=== PATIENT | male | born 1970 | race African-American/Black ===

== ENCOUNTER 2017-07-12 19:19 | Emergency (ER) | payer OTHER, SELFPAY ==
[2017-07-12 19:22] VITALS: BP 148/85; PULSE 88; RESP 16; TEMP 36.8; O2SAT 97; BMI 32.2
--- NOTE | 2017-07-12 19:30 | RAD_ITS ---
STUDY: X-RAY - RIGHT SHOULDER REASON FOR EXAM: Male, 47 years old. Pain TECHNIQUE: 4 view(s) of the shoulder. COMPARISON: None. FINDINGS: Normal glenohumeral articulation. Normal acromioclavicular joint. Normal acromion. Normal humeral head and visualized proximal humerus. The soft tissue structures are unremarkable. Normal visualized pulmonary apex. RAD/Shoulder min 2 Views IMPRESSION: Normal x-ray examination of the shoulder. Electronically Signed: Tomasz Mtz DO at 19:43 EST Tel [phone], Service support ,
--- NOTE | 2017-07-12 20:33 | ED.DCSUM_ITS ---
- ER Visit Summary Date of Service: 07/12/17 Chief Complaint: Right shoulder pain History of Present Illness: The patient is a [address] Sifuentes. He is right- hand dominant. He reports that he has right shoulder pain began approximately 1 week ago. Is a sharp constant pain. Is 10 out of 10 with movement. Zeta 10 and relieved by elevating his head over his arm. He denies any trauma. No fall , MVA, or change in activity. He denies any paresthesias or weakness distally. Reports that he has had this previously with neuropathy. Review of systems: General: No fever, chills, cold sweats. Cardiovascular: No chest pain, palpitations. Respiratory: No cough, shortness of breath, dyspnea on exertion. Gastrointestinal: No abdominal pain, nausea, vomiting, diarrhea, melena, or hematochezia. Genitourinary: No dysuria, frequency, hematuria. Skin: No rash. Neuro: No headache, numbness, weakness. Physical Examination: Vitals: Stable. Afebrile. General: Well-nourished and well-developed. Head: Normocephalic atraumatic. Neck: Supple, no lymphadenopathy. No JVD. Nontender. Cardiovascular: Regular rate and rhythm. No murmurs. Respiratory: No respiratory distress. Clear to auscultation bilaterally. Abdominal: Soft, nontender, nondistended, normal bowel sounds. No guarding, rebound, or peritoneal signs. Back: Nontender. Extremities: Mild tenderness palpation over the right deltoid. No overlying erythema or warmth to suggest a septic joint. No edema. 2+ radial pulse bilaterally. Normal sensation light touch in C5-T1 distribution. Skin: Normal color, no rash. Neurologic: Alert and oriented ?3. Cranial nerves II through XII are intact. Normal strength and sensation. Psych: Normal affect. Test Results: Right shoulder x-ray is normal. Emergency Department Course and Treatment: An OAR[facility] report was obtained which was negative. He was treated with [place] and naproxen. Treatment Plan: She will be discharged with [place] and naproxen. Instructed to follow-up Dr. Sifuentes in 1 week if not improving. Disposition: To home in improved and stable condition. Impression: 1. Right shoulder pain, acute. This note was generated with Number [employer]ation software. It may contain incorrect words, spelling, and punctuation that were not noted in review of the chart prior to signing ED Disposition - Plan for ED Patient: Disposition: Home or Assisted Living Chief Complaint: Upper Extremity Injury Instructions: ED Shoulder Pain [facility] Prescriptions: Hydrocodone Bitart/Apap 5-325 [[place] 5/325] 1 - 2 tablet PO Q4H PRN PRN 3 Days # 12 tablet PRN Reason: Pain Naproxen [Naprosyn] 500 mg PO BID #20 tablet Referrals: Biju Sifuentes MD [Primary Care Provider] - 1 Week if not improving
[2017-07-12 20:42] VITALS: BP 135/80; PULSE 85; RESP 14; O2SAT 100
[2017-07-12] MEDS: Naproxen 250 MG Tablet 500 MG PO (20:45)
[2017-07-12] MEDS: HYDROcodone Bitartrate/Apap 5/325 Tablet PO (20:45)
== END 2017-07-12 20:46 | disposition home or self-care (01) ==
LOC: ED 20:39
PROVIDERS: Emergency Provider Emergency Medicine; Family Provider Family Medicine; PCP Family Medicine
DX: M25.511 Pain in right shoulder (principal); G62.9 Polyneuropathy, unspecified; Z90.49 Acquired absence of other specified parts of digestive tract
CPT/HCPCS: 73030; 99283

== ENCOUNTER 2018-08-18 20:38 | Emergency (ER) | payer OTHER, SELFPAY ==
[2018-08-18 20:40] VITALS: BP 131/90; PULSE 95; RESP 18; TEMP 36.7; O2SAT 95; BMI 31.6
--- NOTE | 2018-08-18 20:50 | ED.DCSUM_ITS ---
- ER Visit Summary Date of Service: 08/18/18 Chief Complaint: Sinus infection, right ear pain History of Present Illness: The patient is a 48 M who states he has a sinus infection. He has a lot of sinus congestion and drainage. He is felt dizzy today. He also has right ear pain. He denies a cough. He does not have a fever currently. He took no medications for this at home. Physical Examination: Vital signs reviewed. HEENT exam reveals right TM erythema. He has swollen turbinates with sinus congestion. Throat is nonerythematous. Neck is supple without lymphadenopathy. Heart is regular rate and rhythm. Lungs clear. Abdomen soft nontender. Neurologic exam normal Test Results: None performed Emergency Department Course and Treatment: I will treat the patient to the right otitis media with Augmentin. Also give him Mucinex D. He will follow-up with his PCP Treatment Plan: [] Disposition: Discharge Impression: Right otitis media, sinusitis This note was generated with [employer] dictation software. It may contain incorrect words, spelling, and punctuation that were not noted in review of the chart prior to signing ED Disposition - Plan for ED Patient: Referrals: Biju Sifuentes MD [Primary Care Provider] -
--- NOTE | 2018-08-18 20:50 | ED.DEP ---
ED Disposition - Plan for ED Patient: Disposition: Home or Assisted Living Instructions: ED Otitis Media Acute Adult Prescriptions: Amox/Clavulanate Tablet [Augmentin Tablet] 875 mg PO Q12H #14 tab Guaifenesin/Pseudoephedrne HCl [Mucinex D ER 600-60 mg Tablet] 1 ea PO BID #14 tab.er.12h Referrals: Biju Sifuentes MD [Primary Care Provider] -
[2018-08-18] MEDS: Amox/Clavulanate 875 MG Tablet PO (20:51)
== END 2018-08-18 21:03 | disposition home or self-care (01) ==
LOC: ED 21:02
PROVIDERS: Emergency Provider Emergency Medicine; Family Provider Family Medicine; PCP Family Medicine
DX: H66.91 Otitis media, unspecified, right ear (principal); J32.9 Chronic sinusitis, unspecified; E11.9 Type 2 diabetes mellitus without complications
CPT/HCPCS: 99283

== ENCOUNTER 2018-08-28 22:22 | Emergency (ER) | payer OTHER, SELFPAY ==
[2018-08-28 22:23] VITALS: BP 128/90; PULSE 90; RESP 14; TEMP 36.4; O2SAT 95; BMI 30.9
--- NOTE | 2018-08-28 22:41 | ED.VIS.GEN ---
History of Present Illness Chief Complaint: Bite Informant: Patient Onset: Today Narrative: Patient stated he was accidentally bit by his own dog just prior to arrival this evening when he was walking him outside. He startled his dog and he bit his left hand. He is unsure about his last tetanus. Came in for further evaluation and closure. Current severity is mild. He has small puncture wounds to the medial aspect of his left hand. Current severity is mild. Past Medical History - Allergies and Home Meds Allergies/Adverse Reactions: Allergies No Known Allergies Allergy (Verified 08/28/18 22:25) Primary Care Physician: Biju Sifuentes MD [Primary Care Provider] - Prior records reviewed: Yes Past Medical History: - - Reviewed Surgical History: noncontributory Lives: Spouse/ Significant Other Smoking Status: Never smoker Alcohol: None Drugs: None Review of Systems General: Denies: Chills, Fever, Sweats Eyes: Denies: Visual changes - bilaterally, Diplopia ENT: Denies: Rhinorrhea, Sore throat Cardiovascular: Denies: Chest pain, Palpitations Respiratory: Denies: Dyspnea, Cough, Dyspnea on exertion Gastrointestinal: Denies: Abdominal pain, Nausea, Vomiting, Diarrhea, Melena, Hematochezia Genitourinary: Denies: Dysuria, Hematuria, Frequency Musculoskeletal: Denies: Back pain, Extremity Pain Skin: Reports: Wounds - See HPI. Denies: Rash Neurological: Denies: Headache, Weakness, Numbness Physical Exam Vital Signs/Narrative: Vital Signs Temp Pulse Resp BP Pulse Ox 08/28/18 22:23 97.6 F L 90 14 128/90 H 95 General: Well nourished, Well developed, No Acute Distress Head: Normocephalic, Atraumatic Eyes: Perrl, EOMI ENT: Moist mucous membranes, No rhinorrhea Neck: Supple, Nontender Cardiovascular: Regular rate, Regular rhythm, No murmurs Respiratory: No distress, CTA bilaterally, Chest nontender Abdomen: Soft, Nontender, Nondistended, Normal bowel sounds Back: Nontender, Normal Inspection Extremities: Nontender, No edema Skin: Normal color, No rash, Trauma - Patient has 2 0.5 cm lacerations to the palm of his left hand. There is superficial. He has 2 small adjacent superficial punctures Neurological: Alert, Oriented x3, Cranial nerves II-XII grossly intact, Normal Strength, Normal Sensation Psychological: Normal affect, Normal Mood Diagnostic/Tx/Re-eval - Medical Decision Making Patient consented to wound closure. His wounds were washed with hexedine. They were explored and no foreign body was seen. There were washed with saline 500 cc. Closed with 1 suture in top hand wound. Closed with 2 sutures in the bottom hand wound bacitracin was applied as well as a dressing. He will be given a prescription for Augmentin. Given Augmentin and tetanus update here. ED Disposition - Plan for ED Patient: Disposition: Home or Assisted Living Diagnosis: Hand laceration, Dog bite Instructions: ED Bite Dog Prescriptions: Amox/Clavulanate Tablet [Augmentin Tablet] 875 mg PO Q12H #14 tab Referrals: Biju Sifuentes MD [Primary Care Provider] -
[2018-08-28] MEDS: Diphth,Pertuss(Acell),Tet Vac 0.5 ML Vial IM (22:49)
[2018-08-28] MEDS: Amox/Clavulanate 875 MG Tablet PO (23:42)
[2018-08-28 23:47] VITALS: RESP 18
== END 2018-08-28 23:50 | disposition home or self-care (01) ==
PROVIDERS: Emergency Provider Emergency Medicine; Family Provider Family Medicine; PCP Family Medicine
DX: S61.412A Laceration without foreign body of left hand, initial encounter (principal); W54.0XXA Bitten by dog, initial encounter; Y93.K1 Activity, walking an animal; Y92.9 Unspecified place or not applicable
CPT/HCPCS: 12001; 90471; 90715; 99285

== ENCOUNTER 2018-08-31 12:10 | Inpatient (IN) | payer OTHER, SELFPAY ==
[2018-08-31 12:12] VITALS: BP 131/99; PULSE 104; RESP 19; TEMP 36.2; O2SAT 97; BMI 30.2
--- NOTE | 2018-08-31 12:34 | ED.VISSUMM ---
- ER Visit Summary Date of Service: 08/31/18 Chief Complaint: Infected left hand dog bite History of Present Illness: The patient is a 48 M history of [id number] diabetes. Patient was bit by his own dog on Wednesday. Was seen in the emergency department. Has a significant palm laceration which was washed out and repaired. They also started him on Augmentin. In the last day or so he has had increasing pain, redness and puslike discharge from the wound. Saw his primary care physician today who sent him into the ER for evaluation. He denies any fever. Physical Examination: Well-appearing middle-age male. Vital signs are stable. He is afebrile. No distress. HEENT exam unremarkable. Neck nontender. Lungs clear to auscultation bilaterally. Heart regular rhythm no murmur. Rate about 100. Abdomen soft nontender normal bowel sounds no peritoneal signs. Remedies moves all 4. Neurovascular intact. Left hand palm laceration repair with several sutures in place. There is a small amount of pus like discharge. The hand is swollen. Red and tender. Consistent with a localized hand palm infection. Distally he has normal cap refill to his fingers and thumb. Normal touch sensation. He is able to open and close his hand. No signs of compartment syndrome. The forearm is nontender. Nonswollen. No lymphangitic streaking. There is no axillary lymphadenopathy. The wrist, elbow and shoulder are nontender with normal range of motion. Test Results: CBC shows 7. Hemoglobin 17. Electrolytes unremarkable normal gap and creatinine. Glucose 165. Emergency Department Course and Treatment: Patient has an infected dog bite of the palm. I will remove the sutures. Irrigate the wound. Apply iodine. Will be started on IV Zosyn. Wound cultures will be obtained. I have also already discussed the patient's care with Dr. Lugo who will evaluate him and he may need to go to the OR in the next 24 hours to have this washed out. I will speak to the hospitalist about admission. He will receive morphine for pain. I removed the sutures from the left palm puncture wound dog bite. Pus expressed from each. They were locally anesthetized with lidocaine. I did both MRSA and regular wound cultures. Expressed as much pus as I could. Cleaned both areas thoroughly with iodine and washed out the wounds. Patient tolerated procedure well. Treatment Plan: IV antibiotics. Hospitalist admit. Orthopedic consult for possible open debridement. Disposition: Admission Impression: Acute left hand infected dog bite post laceration repair This note was generated with [employer] dictation software. It may contain incorrect words, spelling, and punctuation that were not noted in review of the chart prior to signing ED Disposition - Plan for ED Patient:
[2018-08-31] MEDS: morphine 8 MG/ML Syringe 6 MG IV (12:51)
[2018-08-31] MEDS: Ondansetron 4 MG/2 ML Vial IV (12:51)
[2018-08-31 13:01] LABS: Absolute Lymphocyte Count 2.24 X10^3/ul (0.83-4.51); Absolute Neutrophil Count 3.9 X10^3/uL (2.0-7.7); Basophil# 0.02 X10^3/uL; Basophil% 0.3 % (0-1); Eosinophil# 0.12 X10^3/uL; Eosinophils% 1.7 % (0-5); Hematocrit 47.9 % (40-54); Lymphocyte # 2.24 X10^3/ul (4.0); Lymphocyte % 32.1 % (19-41); Mean Corp Hgb Conc 35.5 g/gl (32-36); Mean Corpuscular Volume 87.4 fL (80-94); Mean Platelet Vol. 10.2 fl (6.2-12.0); Monocyte# 0.66 X10^3/uL; Monocyte% 9.5 % (0-10); Neutrophil # 3.94 X10^3/uL (2.7-7.7); Neutrophil % 56.4 % (47-70); Platelet Count 181 K/mm3 (150-450); RBC Distribution Width CV 14.1 % (11.6-14.6); RBC Distribution Width SD 45.5 fl (35.1-43.9); Red Blood Count 5.48 M/mm3 (4.6-6.2)
[2018-08-31 13:05] LABS: POSITIVE COUNT NO; POSITIVE DIFFERENTIAL NO; POSITIVE MORPHOLOGY NO
[2018-08-31 13:10] LABS: Anion Gap 5 (5-15); BUN 9 mg/dL (7-18); BUN/Creat Ratio 8.6 RATIO (10-20); Chloride 103 mmol/L (98-107); Creatinine, Serum 1.05 mg/dL (0.70-1.30); EST Glomerular Filtration Rate 80 mL/min (>60); Est Glom Filt Rate - Afr Amer 97 mL/min (>60); Estimated Creatinine Clearance 95.46 ml/min; Glucose 165 mg/dL (74-106); Potassium 3.8 mmol/L (3.5-5.1); Sodium Level 136 mmol/L (136-145)
--- NOTE | 2018-08-31 13:19 | PCM.HP.STD ---
Problem List (1) Infected animal bite of hand Status: Acute Qualifiers: Laterality: left (2) Diabetes mellitus, type II Status: Chronic Qualifiers: Diabetes mellitus stroboscope operator insulin use: without stroboscope operator use Diabetes mellitus complication status: with unspecified complications Qualified Code(s): E11.8 - Type 2 diabetes mellitus with unspecified complications (3) Obesity Status: Chronic Qualifiers: Obesity type: due to excess calories Obesity classification: adult class 1 (BMI 30 - 34.9) (4) Chronic neck pain Status: Chronic (5) HLD (hyperlipidemia) Status: Chronic Qualifiers: Hyperlipidemia type: pure hypercholesterolemia Qualified Code(s): E78.00 - Pure hypercholesterolemia, unspecified; E78.0 - Pure hypercholesterolemia (6) Anxiety and depression Status: Chronic History of Present Illness Date of Admission: 08/31/18 Chief Complaint: L hand pain s/p canine bite The patient is a 48 y/o M w/ PMHx: Obesity, Diabetes mellitus type II, HLD, Anxiety and Depression, Chronic Neck Pain who presents to the [facility] ED on 08/31/18 with history of being bitten by his dog after accidentally surprising him on his left palm, presenting to the ED that evening with washout, Augmentin initiation with onset redness, swelling, purulence coming from sutures over the last 24 hours with no associated fevers or chills. He is having some difficulty opening his hand and closing it secondary to the swelling. He did take off his wedding ring. Work-up in the ED included T 97.1, heart rate 104, BP 131/99, respiratory rate 19, 97% on room air, CBC with WBC 7, hemoglobin 17, platelet 181 without shift, BMP remarkable for glucose 165, plan to ED I&D of the region with wound culture and wound MRSA PCR to be obtained. In the ED patient administered Zosyn, morphine, Zofran. Past Medical History Past Medical History (Chronic Problems): Chronic Problems Diabetes mellitus, type II (Chronic) Obesity (Chronic) Chronic neck pain (Chronic) HLD (hyperlipidemia) (Chronic) Anxiety and depression (Chronic) Allergies No Known Allergies Allergy (Verified 08/31/18 12:11) Home Medications: Ambulatory Orders Medication Instructions Recorded Duloxetine Hcl [Cymbalta] 60 mg PO DAILY 10/30/15 Metformin(XR) [Glucophage Xr] 500 mg PO DAILY 08/18/18 Tizanidine HCl 4 mg PO BID 08/28/18 Amox/Clavulanate Tablet [Augmentin 875 mg PO Q12H 08/31/18 Tablet] Atorvastatin Calcium [Lipitor] 20 mg PO QHS 08/31/18 Ranitidine HCl 300 mg PO BID 08/31/18 Surgical History: - - Status post congenital cervical spine deformity intervention following , cholecystectomy, inguinal hernia repair. Psychiatric History: Anxiety, Depression Lives: Spouse/ Significant Other Smoking Status: Never smoker Tobacco Use: Non-smoker Alcohol: None Drugs: None - *Family History Maternal History Items: - - Patient with no market maternal family history including no heart disease, diabetes, cancer. Paternal History Items: - - Patient with a paternal family history of diabetes. Review of Systems Constitutional: Reports: Malaise, Weakness, Fatigue. Denies: Chills, Fever, Weight Change HEENT: Denies: Head Aches, Sinus Congestion, Sinus Drainage Cardiovascular: Denies: Chest Pain, Palpitations Respiratory: Denies: Cough, Shortness of breath at rest, Sputum production Gastrointestinal: Denies: Abdominal Pain, Nausea, Vomiting Genitourinary: Denies: Dysuria Musculoskeletal: Reports: Hand Pain, Joint Pain, Neck Pain. Denies: Joint Tenderness Skin: Reports: Skin Changes, Wounds. Denies: Rash Neurological: Denies: Numbness, Tingling, Focal weakness Psychiatric: Reports: Anxiety, Depression. Denies: Homicidal Ideations, Suicidal Ideations Hematologic/ Lymphatic: Denies: Easy Bruising, Easy Bleeding VTE Information - Inpt Only VTE Present on Admission: No VTE Mechan Device Prophylaxis: SCD's VTE Pharm Prophylaxis ordered?: Yes Patient Problems: Active and Suspected Problems Infected animal bite of hand (Acute) Subjective: Seated upright in the ED bed, no acute distress, does have discomfort with evaluation of left hand. Objective: Physical Examination: General: awake, alert, oriented x 3 and cooperative, seated upright in the ED bed in no apparent distress but pain elicited with evaluation. Skin: normal color, turgor, no icterus, cyanosis except as noted canine bites to the left hand with [address] regions of sut[address] in place with purulent material able to be expressed with pressure, very edematous, tender to palpation, warm to touch, no marketed cellulitic appearance or streaking. HEENT: AT/NC, EOMI, PERRLA, mildly dry MM, no carotid bruits or JVD noted. Lungs: CTA bilaterally, moderate effort, mild decrease BL bases, no rales, ronchi or wheezing. Heart: Mildly tachycardiac with regular rhythm; no gallop, rub audible. Abdomen: soft, obese, NTTP, ND, normal BS, no HSM. Extremities: no cyanosis, clubbing, difficulty with opening and closing hand secondary to severity of edema, see skin. Neurological: patient awake, alert, oriented x 3; cognitive function intact; pupils equally reactive to light and accomodation; cranial nerves II-XII grossly normal, moving all 4 extremities although limited LUE hand usage given acute presentation, no focal deficits, strength accordingly mildly to moderately globally decreased left upper extremity otherwise intact other extremities. Psychiatric: affect appears normal, no acute evidence of depressive or anxiety feelings. - Physical Exam Vital Signs Temp Pulse Resp BP Pulse Ox 97.1 F L 104 H 19 H 131/99 H 97 08/31/18 12:12 08/31/18 12:12 08/31/18 12:12 08/31/18 12:12 08/31/18 12:12 Weight: 223 lb Body Mass Index (BMI) 30.2 Laboratory Tests Past 24 Hrs 08/31/18 08/31/18 08/31/18 12:40 12:41 12:41 WBC 7.0 RBC 5.48 Hgb 17.0 H Hct 47.9 MCV 87.4 MCH 31.0 MCHC 35.5 RDW 14.1 RDW Differential 45.5 H Plt Count 181 MPV 10.2 Immature Gran % (Auto) 0.000 Neut % (Auto) 56.4 Lymph % (Auto) 32.1 [place] % (Auto) 9.5 Eos % (Auto) 1.7 Baso % (Auto) 0.3 Absolute Neuts (auto) 3.9 Absolute Lymphs (auto) 2.24 Total Counted Not Reportable Sodium 136 Potassium 3.8 Chloride 103 Carbon Dioxide 28.0 Anion Gap 5 BUN 9 Creatinine 1.05 Estim Creat Clear Calc 95.46 Est GFR (MDRD) Af Amer 97 Est GFR (MDRD) Non-Af 80 BUN/Creatinine Ratio 8.6 L Glucose 165 H Calcium 9.0 S.aureus Protein A PCR Pending MRSA (PCR) Pending Assessment/Plan All Active Problems Infected animal bite of hand (Acute) The patient is a 48 y/o M w/ PMHx: Obesity, Diabetes mellitus type II, HLD, Anxiety and Depression, Chronic Neck Pain who presents to the [facility] ED on 08/31/18 with history of being bitten by his dog after accidentally surprising him on his left palm, presenting to the ED that evening with washout, Augmentin initiation with onset redness, swelling, purulence coming from sutures over the last 24 hours with no associated fevers or chills. (1) LUE (Dominant hand) Hand, Palm Infected Canine Bites, Cellulitis: Work-up in the ED included T 97.1, heart rate 104, BP 131/99, respiratory rate 19, 97% on room air, CBC with WBC 7, hemoglobin 17, platelet 181 without shift, BMP remarkable for glucose 165, plan to ED I&D of the region with wound culture and wound MRSA PCR to be obtained. In the ED patient administered Zosyn, morphine, Zofran. Will admit to [facility], maintain on IV vanc and zosyn pending Wound Cx, Wound MRSA PCR w/ de-escalation pending these results, plan repeat CBC in AM, continue affected extremity elevation above heart when seated and in bed, monitor erythema outline with VS checks. Orthopedic surgery, Dr. Lugo consulted, NPO after midnight for possible OR needs. (2) Diabetes mellitus type II: Hold oral home regimen, ADA diet, accu checks w/ ISS, hemoglobin A1c pending, nutrition consulted for education and teaching. (3) Elevated BP without HTN Dx: Elevated DBP upon ED presentation, given acute pain, will continue to monitor and if remains elevated consider initiation of regimen. (4) Hyperlipidemia: Continue home statin regimen. (5) Anxiety and Depression: Continue home Cymbalta regimen. 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 (7) Obesity: Weight loss and lifestyle changes encouraged, nutrition consulted. (8) GERD: Continue home ranitidine regimen. (9) DVT Prophylaxis: SCDs, lovenox with hold 09/01/18 AM for possible OR. Code Visit Inpatient E&M: 73657 Init Hosp L3
--- NOTE | 2018-08-31 13:34 | NURSING ---
313 LT HAND DOG BITE, INFECTED WHITE
--- NOTE | 2018-08-31 14:15 | CASEMGMT ---
RN CM Assessment Introduced role of RN CM to patient and family at bedside.? Patient is alert, oriented and able?to participate in RN CM Assessment. ?Care providers, pharmacy, and demographics verified. Presentation: Seen In ER 08/28/18 for Dog Bite/laceration repair-his own Dog. h/o Diabetes, Non Insulin Dependent. Seen PCP today and sent him to ER. +Swelling, redness, small amount Pus like Discharge. Admit Dx: Left hand dog bite, Infected Re-Admit: No Barriers/Issues: None PCP: Biju Sifuentes Specialists: None [facility]erred [facility]acy[facility] Insurance: CAPPTURE Rx Benefit: Yes? LNOK: Teresa Sales LW/HPOA: Yes- believes so, HPOA- Teresa Sales Living Arrangements:? Lives with in a SS Home, 3 steps to enter ADL?s: Independent with ambulation and ADL's Transportation: Patient drives, or parents will drive upon DC DME: CPAP, Glucometer HHC: None SNF: None Goal: Home DC PLAN: Home with possible IV ABX. PATO Dang
[2018-08-31 14:29] VITALS: BMI 30.2
[2018-08-31 15:02] LABS: M R Staph aureus DNA By PCR Negative (Negative); Probe Check PASS; Specimen Processing Control PASS; Staph aureus DNA By PCR POSITIVE (Negative)
[2018-08-31] MEDS: morphine 10 MG/ML Syringe 6 MG IV (15:08)
[2018-08-31 15:10] VITALS: BP 143/84; PULSE 97; RESP 16
[2018-08-31 15:44] VITALS: BMI 30.8
[2018-08-31 15:49] VITALS: BP 153/93; PULSE 85; RESP 16; TEMP 36.2; O2SAT 96
[2018-08-31 16:14] LABS: Magnesium 2.1 mg/dL (1.6-2.6)
[2018-08-31] MEDS: 0.9% Normal Saline 1,000 ML 100 ML IV (16:18)
[2018-08-31] MEDS: HYDROcodone Bitartrate/Apap 5/325 Tablet PO ×2 (16:20→22:34)
[2018-08-31] MEDS: Enoxaparin 40 MG/0.4 ML Syringe SC (16:20)
[2018-08-31] MEDS: Insulin Lispro 100 UNIT/ML INSULN.PEN SC ×2 (16:27→22:27)
[2018-08-31 17:00] LABS: Bedside Glucose 231 mg/dL (70-110)
--- NOTE | 2018-08-31 18:49 | PCM.RX.CS ---
Consult Pharmacy has been consulted to manage selected antiobiotic: Vancomycin Type of Consult: New start Suspected Infection: Skin/Soft tissue Prior Doses of Antibiotics Received/Current Regimen: NONE Labs: Sodium 136 mmol/L (136-145) 08/31/18 12:41 Potassium 3.8 mmol/L (3.5-5.1) 08/31/18 12:41 Chloride 103 mmol/L (98-107) 08/31/18 12:41 Carbon Dioxide 28.0 mmol/L (21.0-32.0) 08/31/18 12:41 Anion Gap 5 (5-15) 08/31/18 12:41 BUN 9 mg/dL (7-18) 08/31/18 12:41 Creatinine 1.05 mg/dL (0.70-1.30) 08/31/18 12:41 Est GFR (MDRD) Af Amer 97 mL/min (>60) 08/31/18 12:41 Est GFR (MDRD) Non-Af 80 mL/min (>60) 08/31/18 12:41 BUN/Creatinine Ratio 8.6 RATIO (10-20) L 08/31/18 12:41 Glucose 165 mg/dL (74-106) H 08/31/18 12:41 Microbiology: Microbiology 08/31/18 12:40 Bite, Dog Gram Stain - Final Weight used for dosin kg Estimated Creatinine Clearance: 95ML/MIN Goal Trough: 10-15 mcg/mL Pharmacy Plan for Drug Dosing: PLAN/RECOMMENDATIONS 1. Vancomycin initial dose 1500mg IV x1 given 08/31 @1749 2. Scheduled vancomycin 1500mg IV Q12hr to start 09/01 @0600 3. Trough scheduled 09/02/18 @0530, prior to 4th total dose 4. Pharmacy Service will continue to monitor and adjust dosing as required.
[2018-08-31 19:05] VITALS: O2SAT 94
[2018-08-31 22:10] VITALS: BP 158/95; PULSE 96; RESP 16; TEMP 36.9; O2SAT 96
[2018-08-31] MEDS: tiZANidine HCl 2 MG Tablet 4 MG PO (22:27)
[2018-08-31 23:20] LABS: Bedside Glucose 221 mg/dL (70-110)
[2018-09-01] VITALS (10 sets, daily range): BP systolic 125–171; BP diastolic 84–117; PULSE 74–105; RESP 14–18; TEMP 36.6–36.8; O2SAT 93–97; BMI 30.8
[2018-09-01] MEDS: 0.9% Normal Saline 1,000 ML 100 ML IV ×2 (05:18→16:47)
[2018-09-01] MEDS: HYDROcodone Bitartrate/Apap 5/325 Tablet PO ×3 (05:22→23:04)
[2018-09-01 06:22] LABS: Absolute Lymphocyte Count 2.53 X10^3/ul (0.83-4.51); Absolute Neutrophil Count 2.7 X10^3/uL (2.0-7.7); Basophil# 0.01 X10^3/uL; Basophil% 0.2 % (0-1); Eosinophil# 0.18 X10^3/uL; Eosinophils% 3.1 % (0-5); Hematocrit 46.2 % (40-54); Hemoglobin 15.7 g/dl (13.0-16.5); Lymphocyte # 2.53 X10^3/ul (4.0); Lymphocyte % 43.2 % (19-41); Mean Corpuscular Hgb 30.1 pg (27.0-32.0); Mean Corpuscular Volume 88.5 fL (80-94); Mean Platelet Vol. 10.1 fl (6.2-12.0); Monocyte# 0.42 X10^3/uL; Monocyte% 7.2 % (0-10); Neutrophil % 46.1 % (47-70); Platelet Count 178 K/mm3 (150-450); RBC Distribution Width CV 14.6 % (11.6-14.6); RBC Distribution Width SD 47.2 fl (35.1-43.9); Red Blood Count 5.22 M/mm3 (4.6-6.2); White Blood Count 5.9 K/mm3 (4.4-11.0)
[2018-09-01 06:26] LABS: POSITIVE COUNT NO; POSITIVE DIFFERENTIAL NO; POSITIVE MORPHOLOGY NO
[2018-09-01 06:41] LABS: Anion Gap 7 (5-15); BUN 9 mg/dL (7-18); BUN/Creat Ratio 8.3 RATIO (10-20); Calcium,Total 8.8 mg/dL (8.5-10.1); Chloride 104 mmol/L (98-107); Creatinine, Serum 1.09 mg/dL (0.70-1.30); EST Glomerular Filtration Rate 77 mL/min (>60); Est Glom Filt Rate - Afr Amer 93 mL/min (>60); Estimated Creatinine Clearance 91.96 ml/min; Glucose 186 mg/dL (74-106); Potassium 4.1 mmol/L (3.5-5.1); Sodium Level 138 mmol/L (136-145)
[2018-09-01 07:11] LABS: Bedside Glucose 164 mg/dL (70-110)
--- NOTE | 2018-09-01 09:12 | PCM.PN.HOSP ---
Patient Problems: Active and Suspected Problems Infected animal bite of hand (Acute) Subjective: Patient is a 48-year-old lady who left hand swelling following a dog bite. Patient's dog was a domestic dog registry dog Objective: GENERAL: cooperative HEENT: Atraumatic; moist oral mucosa EYES; Anicteric, Normal Conjunctiva NECK; supple, normal thyroid, no distended JVD. RESPIRATORY: Diminished to auscultation bilaterally, CARDIOVASCULAR: Regular S1 S2, no audible murmurs GI: soft, non-tender, normoactive bowel sounds, : No Renal angle tenderness; EXTREMITIES: No edema, no clubbing, no cyanosis. MUSCULOSKELETAL: Swelling involving the left muscles with 2 puncture wounds NEURO: Awake; no lateralizing signs. SKIN: As described above PSYCH; Normal affect Vitals/I&O's: Vital Signs Temp Pulse Resp BP Pulse Ox 97.9 F 74 16 141/88 H 96 09/01/18 03:19 09/01/18 03:19 09/01/18 03:19 09/01/18 03:19 09/01/18 03:19 Oxygen Delivery Method Room Air Weight: 103 kg Body Mass Index (BMI) 30.8 Intake and Output for Last 24 Hours 08/30/18 08/31/18 09/01/18 23:59 23:59 23:59 Intake Total 1780 / 1780 Balance 1780 / 1780 Microbiology Past 72 Hours 08/31/18 12:40 Bite, Dog Gram Stain - Final Laboratory Results 08/31/18 12:40: S.aureus Protein A PCR POSITIVE H, MRSA (PCR) Negative 08/31/18 12:41: WBC 7.0, RBC 5.48, Hgb 17.0 H, Hct 47.9, MCV 87.4, MCH 31.0, MCHC 35.5, RDW 14.1, RDW Differential 45.5 H, Plt Count 181, MPV 10.2, Immature Gran % (Auto) 0.000, Neut % (Auto) 56.4, Lymph % (Auto) 32.1, [place] % (Auto) 9.5, Eos % (Auto) 1.7, Baso % (Auto) 0.3, Absolute Neuts (auto) 3.9, Absolute Lymphs (auto) 2.24, Total Counted Not Reportable 08/31/18 12:41: Sodium 136, Potassium 3.8, Chloride 103, Carbon Dioxide 28.0, Anion Gap 5, BUN 9, Creatinine 1.05, Estim Creat Clear Calc 95.46, Est GFR (MDRD) Af Amer 97, Est GFR (MDRD) Non-Af 80, BUN/Creatinine Ratio 8.6 L, Glucose 165 H, Calcium 9.0 08/31/18 12:41: Magnesium 2.1 08/31/18 16:25: POC Glucose 231 H 08/31/18 22:19: POC Glucose 221 H 09/01/18 05:36: Sodium 138, Potassium 4.1, Chloride 104, Carbon Dioxide 27.0, Anion Gap 7, BUN 9, Creatinine 1.09, Estim Creat Clear Calc 91.96, Est GFR (MDRD) Af Amer 93, Est GFR (MDRD) Non-Af 77, BUN/Creatinine Ratio 8.3 L, Glucose 186 H, Calcium 8.8 09/01/18 05:36: WBC 5.9, RBC 5.22, Hgb 15.7, Hct 46.2, MCV 88.5, MCH 30.1, MCHC 34.0, RDW 14.6, RDW Differential 47.2 H, Plt Count 178, MPV 10.1, Immature Gran % (Auto) 0.200, Neut % (Auto) 46.1 L, Lymph % (Auto) 43.2 H, [place] % (Auto) 7.2, Eos % (Auto) 3.1, Baso % (Auto) 0.2, Absolute Neuts (auto) 2.7, Absolute Lymphs (auto) 2.53, Total Counted Not Reportable 09/01/18 06:56: POC Glucose 164 H Current Medications Acetaminophen (Tylenol) 650 mg PO Q6H PRN PRN PRN Reason: Non-cardiac pain (mod-severe) Hydrocodone Bitart/Acetaminophen ([place] 5mg-325mg) 1 - 2 tablet PO Q6H PRN PRN PRN Reason: MOD-SEVERE PAIN (4-10/10) Last Admin: 09/01/18 05:22 Dose: 2 tablet Al Hydroxide/Mg Hydroxide (Mylanta Ii) 15 - 30 ml PO Q4H PRN PRN PRN Reason: INDIGESTION Albuterol Sulfate (Ventolin Aerosols) 2.5 mg INHALATION Q2H PRN PRN PRN Reason: dyspnea, wheezing Dextrose (D50w Syringe) 0 gm IV X1 PRN; Protocol PRN Reason: Hypoglycemia Duloxetine HCl (Cymbalta) 60 mg PO DAILY [facility] Enoxaparin Sodium (Lovenox) 40 mg SC DAILY@1000 BISI Last Admin: 08/31/18 16:20 Dose: 40 mg Glucagon () 1 mg IM .X1 PRN PRN Reason: Hypoglycemia Hydralazine HCl (Apresoline Iv) 10 mg IV Q4H PRN PRN PRN Reason: SBP > 160 Sodium Chloride () 1,000 mls @ 100 mls/hr IV .Q10H [facility] Last Admin: 09/01/18 05:18 Dose: 100 mls/hr Piperacillin Sod/Tazobactam (Sod 3.375 gm/ Sodium Chloride) 50 mls @ 12.5 mls/hr IV Q8 [facility] Last Admin: 09/01/18 08:36 Dose: 12.5 mls/hr Sodium Chloride () 250 mls @ 15 mls/hr IV .[id number] PRN PRN Reason: SALINE FLUSH Sodium Chloride () 250 mls @ 15 mls/hr IV .[id number] PRN PRN Reason: SALINE FLUSH Insulin Human Lispro (Humalog Kwikpen (Bkc)) 0 unit SC ACHS [facility]; Protocol Last Admin: 09/01/18 08:36 Dose: Not Given Melatonin (Melatonin) 3 mg PO QHS PRN PRN PRN Reason: INSOMNIA Morphine Sulfate () 1 - 2 mg IV Q4H PRN PRN PRN Reason: PAIN Ondansetron HCl (Zofran) 4 mg IV Q8H PRN PRN PRN Reason: NAUSEA/VOMITING Sodium Chloride () 5 - 15 ml IV UD PRN PRN Reason: SALINE FLUSH Tizanidine HCl (Zanaflex) 4 mg PO BID [facility] Last Admin: 08/31/18 22:27 Dose: 4 mg Medical Necessity - Tobacco Use Smoking Status: Never smoker Tobacco Use: Non-smoker Assessment/Plan All Active Problems Infected animal bite of hand (Acute) Patient is a 48-year-old lady who left hand swelling following a dog bite. Patient's dog was a domestic dog registry dog 1. Left hand infected dog bite. Patient was started on Zosyn and vancomycin from the emergency department. MRSA screen came back negative vancomycin discontinued. Consultation was placed to orthopedic surgery for possible I&D 2. Diabetes mellitus type II: Controlled/uncontrolled, patient's oral hypoglycemics held. Placed on long acting insulin, Accu-Cheks a.c. and at bedtime and covered with sliding scale insulin 3. Hypertension-blood pressure controlled, home medications continued with dose adjustment as needed 4. Dyslipidemia-patient is on statin therapy, continued at home dose 5. 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 Obesity with BMI of 30.8 weight loss advised 7. Depression with anxiety patient is on Cymbalta 8. GERD on PPI 9. DVT prophylaxis Lovenox Code Visit Inpatient E&M: [id number] [facility] [[email or web address]] Hosp L3
--- NOTE | 2018-09-01 09:15 | NURSING ---
wound photo: left hand
--- NOTE | 2018-09-01 09:18 | PN_ITS ---
Patient Problems: Active and Suspected Problems Infected animal bite of hand (Acute) Subjective: Patient is a 48-year-old lady who left hand swelling following a dog bite. Patient's dog was a domestic dog registry dog Objective: GENERAL: cooperative HEENT: Atraumatic; moist oral mucosa EYES; Anicteric, Normal Conjunctiva NECK; supple, normal thyroid, no distended JVD. RESPIRATORY: Diminished to auscultation bilaterally, CARDIOVASCULAR: Regular S1 S2, no audible murmurs GI: soft, non-tender, normoactive bowel sounds, : No Renal angle tenderness; EXTREMITIES: No edema, no clubbing, no cyanosis. MUSCULOSKELETAL: Swelling involving the left muscles with 2 puncture wounds NEURO: Awake; no lateralizing signs. SKIN: As described above PSYCH; Normal affect Vitals/I&O's: Vital Signs Temp Pulse Resp BP Pulse Ox 97.9 F 74 16 141/88 H 96 09/01/18 03:19 09/01/18 03:19 09/01/18 03:19 09/01/18 03:19 09/01/18 03:19 Oxygen Delivery Method Room Air Weight: 103 kg Body Mass Index (BMI) 30.8 Intake and Output for Last 24 Hours 08/30/18 08/31/18 09/01/18 23:59 23:59 23:59 Intake Total 1780 / 1780 Balance 1780 / 1780 Microbiology Past 72 Hours 08/31/18 12:40 Bite, Dog Gram Stain - Final Laboratory Results 08/31/18 12:40: S.aureus Protein A PCR POSITIVE H, MRSA (PCR) Negative 08/31/18 12:41: WBC 7.0, RBC 5.48, Hgb 17.0 H, Hct 47.9, MCV 87.4, MCH 31.0, MCHC 35.5, RDW 14.1, RDW Differential 45.5 H, Plt Count 181, MPV 10.2, Immature Gran % (Auto) 0.000, Neut % (Auto) 56.4, Lymph % (Auto) 32.1, [place] % (Auto) 9.5, Eos % (Auto) 1.7, Baso % (Auto) 0.3, Absolute Neuts (auto) 3.9, Absolute Lymphs (auto) 2.24, Total Counted Not Reportable 08/31/18 12:41: Sodium 136, Potassium 3.8, Chloride 103, Carbon Dioxide 28.0, Anion Gap 5, BUN 9, Creatinine 1.05, Estim Creat Clear Calc 95.46, Est GFR (MDRD) Af Amer 97, Est GFR (MDRD) Non-Af 80, BUN/Creatinine Ratio 8.6 L, Glucose 165 H, Calcium 9.0 08/31/18 12:41: Magnesium 2.1 08/31/18 16:25: POC Glucose 231 H 08/31/18 22:19: POC Glucose 221 H 09/01/18 05:36: Sodium 138, Potassium 4.1, Chloride 104, Carbon Dioxide 27.0, Anion Gap 7, BUN 9, Creatinine 1.09, Estim Creat Clear Calc 91.96, Est GFR (MDRD) Af Amer 93, Est GFR (MDRD) Non-Af 77, BUN/Creatinine Ratio 8.3 L, Glucose 186 H, Calcium 8.8 09/01/18 05:36: WBC 5.9, RBC 5.22, Hgb 15.7, Hct 46.2, MCV 88.5, MCH 30.1, MCHC 34.0, RDW 14.6, RDW Differential 47.2 H, Plt Count 178, MPV 10.1, Immature Gran % (Auto) 0.200, Neut % (Auto) 46.1 L, Lymph % (Auto) 43.2 H, [place] % (Auto) 7.2, Eos % (Auto) 3.1, Baso % (Auto) 0.2, Absolute Neuts (auto) 2.7, Absolute Lymphs (auto) 2.53, Total Counted Not Reportable 09/01/18 06:56: POC Glucose 164 H Current Medications Acetaminophen (Tylenol) 650 mg PO Q6H PRN PRN PRN Reason: Non-cardiac pain (mod-severe) Hydrocodone Bitart/Acetaminophen ([place] 5mg-325mg) 1 - 2 tablet PO Q6H PRN PRN PRN Reason: MOD-SEVERE PAIN (4-10/10) Last Admin: 09/01/18 05:22 Dose: 2 tablet Al Hydroxide/Mg Hydroxide (Mylanta Ii) 15 - 30 ml PO Q4H PRN PRN PRN Reason: INDIGESTION Albuterol Sulfate (Ventolin Aerosols) 2.5 mg INHALATION Q2H PRN PRN PRN Reason: dyspnea, wheezing Dextrose (D50w Syringe) 0 gm IV X1 PRN; Protocol PRN Reason: Hypoglycemia Duloxetine HCl (Cymbalta) 60 mg PO DAILY [facility] Enoxaparin Sodium (Lovenox) 40 mg SC DAILY@1000 [facility] Last Admin: 08/31/18 16:20 Dose: 40 mg Glucagon () 1 mg IM .X1 PRN PRN Reason: Hypoglycemia Hydralazine HCl (Apresoline Iv) 10 mg IV Q4H PRN PRN PRN Reason: SBP > 160 Sodium Chloride () 1,000 mls @ 100 mls/hr IV .Q10H [facility] Last Admin: 09/01/18 05:18 Dose: 100 mls/hr Piperacillin Sod/Tazobactam (Sod 3.375 gm/ Sodium Chloride) 50 mls @ 12.5 mls/hr IV Q8 [facility] Last Admin: 09/01/18 08:36 Dose: 12.5 mls/hr Sodium Chloride () 250 mls @ 15 mls/hr IV .[id number] PRN PRN Reason: SALINE FLUSH Sodium Chloride () 250 mls @ 15 mls/hr IV .[id number] PRN PRN Reason: SALINE FLUSH Insulin Human Lispro (Humalog Kwikpen (Bkc)) 0 unit SC ACHS [facility]; Protocol Last Admin: 09/01/18 08:36 Dose: Not Given Melatonin (Melatonin) 3 mg PO QHS PRN PRN PRN Reason: INSOMNIA Morphine Sulfate () 1 - 2 mg IV Q4H PRN PRN PRN Reason: PAIN Ondansetron HCl (Zofran) 4 mg IV Q8H PRN PRN PRN Reason: NAUSEA/VOMITING Sodium Chloride () 5 - 15 ml IV UD PRN PRN Reason: SALINE FLUSH Tizanidine HCl (Zanaflex) 4 mg PO BID [facility] Last Admin: 08/31/18 22:27 Dose: 4 mg Medical Necessity - Tobacco Use Smoking Status: Never smoker Tobacco Use: Non-smoker Assessment/Plan All Active Problems Infected animal bite of hand (Acute) Patient is a 48-year-old lady who left hand swelling following a dog bite. Patient's dog was a domestic dog registry dog 1. Left hand infected dog bite. Patient was started on Zosyn and vancomycin from the emergency department. MRSA screen came back negative vancomycin discontinued. Consultation was placed to orthopedic surgery for possible I&D 2. Diabetes mellitus type II: Controlled/uncontrolled, patient's oral hypoglycemics held. Placed on long acting insulin, Accu-Cheks a.c. and at bedtime and covered with sliding scale insulin 3. Hypertension-blood pressure controlled, home medications continued with dose adjustment as needed 4. Dyslipidemia-patient is on statin therapy, continued at home dose 5. 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 Obesity with BMI of 30.8 weight loss advised 7. Depression with anxiety patient is on Cymbalta 8. GERD on PPI 9. DVT prophylaxis Lovenox Code Visit Inpatient E&M: [id number] [facility] Hosp L3
[2018-09-01] MEDS: Ondansetron 4 MG/2 ML Vial IV (10:40)
[2018-09-01] MEDS: Morphine 2 MG/ML Syringe IV ×2 (10:40→21:01)
--- NOTE | 2018-09-01 11:05 | EKG12_ITS ---
Test Reason : PRE OP Blood Pressure : / mmHG Vent. Rate : 086 BPM Atrial Rate : 086 BPM P-R Int : 136 ms QRS Dur : 072 ms QT Int : 378 ms P-R-T Axes : 051 -16 006 degrees QTc Int : 452 ms Normal sinus rhythm Normal ECG Confirmed by YADIEL LAMB, VALENTINA ([id number]), web content editor DELFINO POPE ([id number]) on 09/05/2018 12:34:54 PM Referred By: Kasie Barlow Confirmed By:VALENTINA COTTO MD
[2018-09-01 11:06] LABS: Bedside Glucose 138 mg/dL (70-110)
[2018-09-01 11:36] LABS: Hemoglobin A1c 7.4 % (4.2-6.3)
--- NOTE | 2018-09-01 14:26 | PCM.CONS.GEN ---
Reason for Consult Date of Consultation: 09/01/18 Reason for Consultation: left hand infection/dog bite History of Present Illness: The patient is a 48 year old M who accidentally bitten by huskie/rucker mix dog onto left hand. increasingly painful, seen in er where was washed out and sutured, antibiotics, following day pus coming from around sutures and returned to ER where repeat washout and admitted with antibiotics and ortho consult. pt seen by wound care and noted to still have fluctuence, pain and difficulty with moving fingers sec to swelling. ortho eval patient and agreed with assessment. Past Medical History Past Medical History (Chronic Problems): Chronic Problems Diabetes mellitus, type II (Chronic) Obesity (Chronic) Chronic neck pain (Chronic) HLD (hyperlipidemia) (Chronic) Anxiety and depression (Chronic) Allergies No Known Allergies Allergy (Verified 08/31/18 12:11) Home Medications: Ambulatory Orders Medication Instructions Recorded Duloxetine Hcl [Cymbalta] 60 mg PO DAILY 10/30/15 Metformin(XR) [Glucophage Xr] 500 mg PO DAILY 08/18/18 Tizanidine HCl 4 mg PO BID 08/28/18 Amox/Clavulanate Tablet [Augmentin 875 mg PO Q12H 08/31/18 Tablet] Atorvastatin Calcium [Lipitor] 20 mg PO QHS 08/31/18 Ranitidine HCl 300 mg PO BID 08/31/18 Surgical History: - - Status post congenital cervical spine deformity intervention following , cholecystectomy, inguinal hernia repair. Psychiatric History: Anxiety, Depression Lives: Spouse/ Significant Other Smoking Status: Never smoker Tobacco Use: Non-smoker Alcohol: None Drugs: None - *Family History Maternal History Items: - - Patient with no market maternal family history including no heart disease, diabetes, cancer. Paternal History Items: - - Patient with a paternal family history of diabetes. Review of Systems Constitutional: Denies: Chills, Fever, Weight Change HEENT: Denies: Head Aches, Sinus Congestion, Sinus Drainage Cardiovascular: Denies: Chest Pain, Palpitations Respiratory: Denies: Cough, Shortness of breath at rest, Sputum production Gastrointestinal: Denies: Abdominal Pain, Nausea, Vomiting Genitourinary: Denies: Dysuria Musculoskeletal: Reports: Hand Pain. Denies: Joint Pain, Joint Tenderness Skin: Denies: Rash, Wounds Neurological: Denies: Numbness, Tingling, Focal weakness Psychiatric: Denies: Anxiety, Depression, Homicidal Ideations, Suicidal Ideations Hematologic/ Lymphatic: Denies: Easy Bruising, Easy Bleeding Patient Problems: Active and Suspected Problems Infected animal bite of hand (Acute) - Physical Exam General: Alert, Oriented x3, Cooperative HEENT: Atraumatic, PERRLA, EOMI, Normocephalic Neck: Supple, No JVD, Negative Carotid Bruits Lungs: Clear to auscultation, Normal air movement Cardiovascular: Regular rate, No murmurs Abdomen: Bowel Sounds Present, Soft, Non Tender Extremities: No edema, Capillary Refill Less than 3 Seconds Skin: No rashes, No breakdown Musculoskeletal: No Tenderness to Palpation of Joints or Extremities, Tenderness - neuro intact/ abd and add of thumb intact Neurological: Cranial nerves II-XII grossly intact Psych/Mental Status: Normal Affect, Appropriate Vital Signs Temp Pulse Resp BP Pulse Ox 98.3 F 78 18 142/87 H 97 09/01/18 09:15 09/01/18 09:15 09/01/18 09:15 09/01/18 09:15 09/01/18 09:15 Oxygen Delivery Method Room Air Weight: 227 lb 1.218 oz Body Mass Index (BMI) 30.8 Intake and Output for Last 24 Hours 08/30/18 08/31/18 09/01/18 23:59 23:59 23:59 Intake Total 1780 / 1780 Balance 1780 / 1780 Microbiology Past 72 Hours 08/31/18 12:40 Gram Stain - Final Bite, Dog Laboratory Tests Past 24 Hrs 08/31/18 08/31/18 09/01/18 12:40 12:41 05:36 WBC RBC Hgb Hct MCV MCH MCHC RDW RDW Differential Plt Count MPV Immature Gran % (Auto) Neut % (Auto) Lymph % (Auto) [place] % (Auto) Eos % (Auto) Baso % (Auto) Absolute Neuts (auto) Absolute Lymphs (auto) Total Counted Sodium 138 Potassium 4.1 Chloride 104 Carbon Dioxide 27.0 Anion Gap 7 BUN 9 Creatinine 1.09 Estim Creat Clear Calc 91.96 Est GFR (MDRD) Af Amer 93 Est GFR (MDRD) Non-Af 77 BUN/Creatinine Ratio 8.3 L Glucose 186 H Hemoglobin A1c Calcium 8.8 Magnesium 2.1 S.aureus Protein A PCR POSITIVE H MRSA (PCR) Negative 09/01/18 09/01/18 05:36 05:36 WBC 5.9 RBC 5.22 Hgb 15.7 Hct 46.2 MCV 88.5 MCH 30.1 MCHC 34.0 RDW 14.6 RDW Differential 47.2 H Plt Count 178 MPV 10.1 Immature Gran % (Auto) 0.200 Neut % (Auto) 46.1 L Lymph % (Auto) 43.2 H [place] % (Auto) 7.2 Eos % (Auto) 3.1 Baso % (Auto) 0.2 Absolute Neuts (auto) 2.7 Absolute Lymphs (auto) 2.53 Total Counted Not Reportable Sodium Potassium Chloride Carbon Dioxide Anion Gap BUN Creatinine Estim Creat Clear Calc Est GFR (MDRD) Af Amer Est GFR (MDRD) Non-Af BUN/Creatinine Ratio Glucose Hemoglobin A1c 7.4 H Calcium Magnesium S.aureus Protein A PCR MRSA (PCR) POC Glucose 09/01/18 09/01/18 08/31/18 10:58 06:56 22:19 POC Glucose 138 H 164 H 221 H 08/31/18 16:25 POC Glucose 231 H Assessment/Plan All Active Problems Infected animal bite of hand (Acute) left hand infection / dog bite with fluctuence and pus concerning for abscess risks reviewed with patient including but not limited to blood loss, blood clot, infection/continued, need for repeat washout, neurovascular injury , loss of life and/or limb. patient aware of risks and would like to proceed with left hand irrigation/debridemen/incision/drainage. to OR for left hand I&D zosyn on hold til cx taken in or for 2pm dosing med mngt wound care as outpatient call with increased pain/ issues arise
--- NOTE | 2018-09-01 14:33 | PCM.OPRPT ---
Report of Operation Date of Procedure: 09/01/18 Pre-Operative Diagnosis: left hand dog bite/fluctuence/ Post-Operative Diagnosis: same Surgery/Procedure Performed:: Incision/drainage/irrigation/debridement left palmar thenar eminence Type of Anesthesia:: General Anesthesiologist: Gopal Bonilla Drains: iodoform packing Estimated Blood Loss (mL): minimal Fluids Replaced: 800ml lr Description of Procedure: Preoperative note She is a 48-year-old male who had a dog bite to his left hand while playing with his dog and accidentally startled dog. Patient was initially seen in the ER couple days ago it was washed out and stitched patient was then pushing on hand and noted there was pus coming out of his incision around these sutures have patient went back to the ER where he was washed out again and admitted for IV antibiotics. Ortho consulted. Seen in the morning and noticed to have some fluctuance and still of pain and swelling around the bites and the bite site close to decision was made to taken to the OR washed him out and keep things open so we can drain prevent recurrent of any infection or abscess. Wrist benefits and alternatives are discussed with patient. Risks include but not limited to blood loss, blood clot, infection, neurovascular, failure procedure, loss of life and loss of limb. Need for revision washout or further debridement was discussed the patient as well. Patient aware and would like to proceed with left hand irrigation debridement incision and drainage. Operative note Patient seen and examined preoperative holding area. Left hand was marked. Patient was brought to the operating room placed supine on the operating table. Signing, anesthesia and antibiotics was held. Left knee was prepped and draped usual sterile fashion with tourniquet on his upper arm. We marked out a curvilinear incision around the thenar eminence connecting the 2 bite wounds which is about 3 cm of 3-1/2 cm incision. The left arm was then elevated and tourniquet was raised 200 pressure of 250 torr. Timeout was performed. We then used a 15 blade to connect the 2 dog bite joseph that dissected down with tenotomies to the level of the muscle and fascia we debrided any fibrotic pieces and there was subcutaneous we then were able to then dissect down to the first webspace we did not express any ade pus just serosanguineous and murky fluid. The incision was then irrigated with copious muscle sterile saline. We closed the incision most distally and then proximally with a 3 and 3 stitches and placed one quarter iodoform packing and sterile dressings. The tourniquet was deflated for total working time of 18 minutes. Patient tolerated procedure well no claudication transferred recovery room stable condition. Please note that after we took cultures we did give the patient his 2:00 Zosyn dose we will resume Zosyn on the floor as well. Postoperative Packing to be removed tomorrow Continue Zosyn Wound care as an outpatient Cultures pending SCDs next Call with increased pain numbness tingling further issues arise Discussed increasing his protein and decreasing his carb intake to manage his sugars better especially in the site of infection to decrease his sugar as well helping promote healing of his hand.
[2018-09-01 15:25] LABS: Bedside Glucose 112 mg/dL (70-110)
[2018-09-01 16:45] LABS: Bedside Glucose 164 mg/dL (70-110)
[2018-09-01] MEDS: Insulin Lispro 100 UNIT/ML INSULN.PEN SC ×2 (16:46→23:03)
[2018-09-01] MEDS: tiZANidine HCl 2 MG Tablet 4 MG PO ×2 (16:46→23:03)
[2018-09-01] MEDS: DULoxetine Hcl 60 MG Capsule PO (16:46)
[2018-09-01 23:15] LABS: Bedside Glucose 224 mg/dL (70-110)
[2018-09-02] MEDS: 0.9% Normal Saline 1,000 ML 100 ML IV ×3 (00:58→21:00)
[2018-09-02 02:41] VITALS: BP 149/76; PULSE 94; RESP 18; TEMP 36.5; O2SAT 97
[2018-09-02] MEDS: HYDROcodone Bitartrate/Apap 5/325 Tablet PO ×3 (05:50→22:26)
[2018-09-02] MEDS: Insulin Lispro 100 UNIT/ML INSULN.PEN SC ×4 (06:43→21:48)
[2018-09-02 06:50] LABS: Bedside Glucose 218 mg/dL (70-110)
[2018-09-02 06:55] LABS: Absolute Lymphocyte Count 1.68 X10^3/ul (0.83-4.51); Absolute Neutrophil Count 5.9 X10^3/uL (2.0-7.7); Basophil# 0.01 X10^3/uL; Basophil% 0.1 % (0-1); Eosinophil# 0.05 X10^3/uL; Eosinophils% 0.6 % (0-5); Hematocrit 43.6 % (40-54); Hemoglobin 15.1 g/dl (13.0-16.5); Lymphocyte # 1.68 X10^3/ul (4.0); Lymphocyte % 20.4 % (19-41); Mean Corp Hgb Conc 34.6 g/gl (32-36); Mean Corpuscular Volume 86.5 fL (80-94); Mean Platelet Vol. 10.1 fl (6.2-12.0); Monocyte% 7.3 % (0-10); Neutrophil # 5.88 X10^3/uL (2.7-7.7); Neutrophil % 71.5 % (47-70); Platelet Count 204 K/mm3 (150-450); RBC Distribution Width CV 13.9 % (11.6-14.6); RBC Distribution Width SD 43.8 fl (35.1-43.9); Red Blood Count 5.04 M/mm3 (4.6-6.2); White Blood Count 8.2 K/mm3 (4.4-11.0)
[2018-09-02 06:56] LABS: POSITIVE COUNT NO; POSITIVE DIFFERENTIAL NO; POSITIVE MORPHOLOGY NO
[2018-09-02 07:12] LABS: Anion Gap 6 (5-15); BUN 11 mg/dL (7-18); BUN/Creat Ratio 9.5 RATIO (10-20); Calcium,Total 8.9 mg/dL (8.5-10.1); Chloride 102 mmol/L (98-107); Creatinine, Serum 1.16 mg/dL (0.70-1.30); EST Glomerular Filtration Rate 72 mL/min (>60); Est Glom Filt Rate - Afr Amer 87 mL/min (>60); Estimated Creatinine Clearance 86.41 ml/min; Glucose 219 mg/dL (74-106); Magnesium 2.1 mg/dL (1.6-2.6); Sodium Level 135 mmol/L (136-145)
[2018-09-02] MEDS: tiZANidine HCl 2 MG Tablet 4 MG PO ×2 (08:12→21:29)
[2018-09-02] MEDS: DULoxetine Hcl 60 MG Capsule PO (08:12)
--- NOTE | 2018-09-02 08:35 | PN_ITS ---
Patient Problems: Active and Suspected Problems Infected animal bite of hand (Acute) Subjective: Patient underwent incision/drainage/irrigation/debridement left palmar thenar eminence 09/01/[address] Lugo Objective: GENERAL: cooperative HEENT: Atraumatic; moist oral mucosa EYES; Anicteric, Normal Conjunctiva NECK; supple, normal thyroid, no distended JVD. RESPIRATORY: Diminished to auscultation bilaterally, CARDIOVASCULAR: Regular S1 S2, no audible murmurs GI: soft, non-tender, normoactive bowel sounds, : No Renal angle tenderness; EXTREMITIES: Left hand and surgical dressing NEURO: Awake; no lateralizing signs. SKIN: As described above PSYCH; Normal affect Vitals/I&O's: Vital Signs Temp Pulse Resp BP Pulse Ox 97.7 F L 94 18 149/76 H 97 09/02/18 02:41 09/02/18 02:41 09/02/18 02:41 09/02/18 02:41 09/02/18 02:41 Oxygen Delivery Method CPAP Weight: 103 kg Body Mass Index (BMI) 30.8 Finger Stick Blood Glucose 112 Intake and Output for Last 24 Hours 08/31/18 09/01/18 09/02/18 23:59 23:59 23:59 Intake Total 2980 / 2980 1700 / 1700 Output Total 200 / 200 Balance 2780 / 2780 1700 / 1700 Microbiology Past 72 Hours 08/31/18 12:40 Bite, Dog Gram Stain - Final Laboratory Results 09/01/18 05:36: Hemoglobin A1c 7.4 H 09/01/18 10:58: POC Glucose 138 H 09/01/18 15:18: POC Glucose 112 H 09/01/18 16:37: POC Glucose 164 H 09/01/18 22:58: POC Glucose 224 H 09/02/18 06:10: WBC 8.2, RBC 5.04, Hgb 15.1, Hct 43.6, MCV 86.5, MCH 30.0, MCHC 34.6, RDW 13.9, RDW Differential 43.8, Plt Count 204, MPV 10.1, Immature Gran % (Auto) 0.100, Neut % (Auto) 71.5 H, Lymph % (Auto) 20.4, [place] % (Auto) 7.3, Eos % (Auto) 0.6, Baso % (Auto) 0.1, Absolute Neuts (auto) 5.9, Absolute Lymphs (auto) 1.68, Total Counted Not Reportable 09/02/18 06:10: Sodium 135 L, Potassium 4.0, Chloride 102, Carbon Dioxide 27.0, Anion Gap 6, BUN 11, Creatinine 1.16, Estim Creat Clear Calc 86.41, Est GFR (MDRD) Af Amer 87, Est GFR (MDRD) Non-Af 72, BUN/Creatinine Ratio 9.5 L, Glucose 219 H, Calcium 8.9, Magnesium 2.1 09/02/18 06:37: POC Glucose 218 H Current Medications Acetaminophen (Tylenol) 650 mg PO Q6H PRN PRN PRN Reason: Non-cardiac pain (mod-severe) Hydrocodone Bitart/Acetaminophen ([place] 5mg-325mg) 1 - 2 tablet PO Q6H PRN PRN PRN Reason: MOD-SEVERE PAIN (4-10/10) Last Admin: 09/02/18 05:50 Dose: 2 tablet Al Hydroxide/Mg Hydroxide (Mylanta Ii) 15 - 30 ml PO Q4H PRN PRN PRN Reason: INDIGESTION Albuterol Sulfate (Ventolin Aerosols) 2.5 mg INHALATION Q2H PRN PRN PRN Reason: dyspnea, wheezing Dextrose (D50w Syringe) 0 gm IV X1 PRN; Protocol PRN Reason: Hypoglycemia Duloxetine HCl (Cymbalta) 60 mg PO DAILY [facility] Last Admin: 09/02/18 08:12 Dose: 60 mg Enoxaparin Sodium (Lovenox) 40 mg SC DAILY@1000 [facility] Last Admin: 08/31/18 16:20 Dose: 40 mg Glucagon () 1 mg IM .X1 PRN PRN Reason: Hypoglycemia Hydralazine HCl (Apresoline Iv) 10 mg IV Q4H PRN PRN PRN Reason: SBP > 160 Sodium Chloride () 1,000 mls @ 100 mls/hr IV .Q10H [facility] Last Admin: 09/02/18 00:58 Dose: 100 mls/hr Piperacillin Sod/Tazobactam (Sod 3.375 gm/ Sodium Chloride) 50 mls @ 12.5 mls/hr IV Q8 [facility] Last Admin: 09/02/18 05:45 Dose: 12.5 mls/hr Sodium Chloride () 250 mls @ 15 mls/hr IV .[id number] PRN PRN Reason: SALINE FLUSH Sodium Chloride () 250 mls @ 15 mls/hr IV .[id number] PRN PRN Reason: SALINE FLUSH Insulin Human Lispro (Humalog Kwikpen (Bkc)) 0 unit SC ACHS [facility]; Protocol Last Admin: 09/02/18 06:43 Dose: 2 units Melatonin (Melatonin) 3 mg PO QHS PRN PRN PRN Reason: INSOMNIA Morphine Sulfate () 1 - 2 mg IV Q4H PRN PRN PRN Reason: PAIN Last Admin: 09/01/18 21:01 Dose: 2 mg Ondansetron HCl (Zofran) 4 mg IV Q8H PRN PRN PRN Reason: NAUSEA/VOMITING Last Admin: 09/01/18 10:40 Dose: 4 mg Sodium Chloride () 5 - 15 ml IV UD PRN PRN Reason: SALINE FLUSH Tizanidine HCl (Zanaflex) 4 mg PO BID [facility] Last Admin: 09/02/18 08:12 Dose: 4 mg Medical Necessity - Tobacco Use Smoking Status: Never smoker Tobacco Use: Non-smoker Assessment/Plan All Active Problems Infected animal bite of hand (Acute) Patient is a 48-year-old lady who left hand swelling following a dog bite. Patient's dog was a domestic dog registry dog 1. Left hand infected dog bite. Patient was started on Zosyn and vancomycin from the emergency department. MRSA screen came back negative vancomycin discontinued. Consultation was placed to orthopedic surgery. Patient underwent incision/drainage/irrigation/debridement left palmar thenar eminence 09/01/[address] Lugo; cultures were sent following the patient's procedure results pending 2. Diabetes mellitus type II: Controlled/uncontrolled, patient's oral hypoglycemics held. Placed on long acting insulin, Accu-Cheks a.c. and at bedtime and covered with sliding scale insulin 3. Hypertension-blood pressure controlled, home medications continued with dose adjustment as needed 4. Dyslipidemia-patient is on statin therapy, continued at home dose 5. 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 Obesity with BMI of 30.8 weight loss advised 7. Depression with anxiety patient is on Cymbalta 8. GERD on PPI 9. DVT prophylaxis Lovenox Code Visit Inpatient E&M: 22951 Subs Hosp L3
[2018-09-02 08:45] VITALS: BP 155/87; PULSE 82; RESP 18; TEMP 36.6; O2SAT 97
[2018-09-02] MEDS: Morphine 2 MG/ML Syringe IV (09:36)
--- NOTE | 2018-09-02 09:39 | NURSING ---
wound photo: left hand
[2018-09-02 11:41] LABS: Bedside Glucose 310 mg/dL (70-110)
--- NOTE | 2018-09-02 13:53 | CASEMGMT ---
RN CM NOTE: Script for wound care supplies received from [facility]. Script placed on chart to be sent home with pt on discharge. Adolfo MEREDITHN RN CM
[2018-09-02 14:45] VITALS: BP 153/77; PULSE 76; RESP 18; TEMP 36.8; O2SAT 97
--- NOTE | 2018-09-02 16:02 | PCM.PN.ORT ---
Patient Problems: Active and Suspected Problems Infected animal bite of hand (Acute) Subjective: Patient is doing well 24 horus post op from left hand incision and drainage secondary to cellulitis / abscess from a dog bite. Patient states that he has only minor pains at this time. He is able to use all of his fingers including his thumb (had some problems yesterday with the thumb). He denies any calf pains / tenderness. He denies, arm swelling and/or numbness/tingling in the extremity. Objective: Incision site in the left palmar region is clean and dry without any acute erythema, inflammation, discharge, warmth, or other skin changes to indicate acute infection. There is no evidence of swelling in the palm. He has minimal tenderness on palpation over the incision site. He has normal sensation and movements of all of the fingers and the wrist. - Physical Exam General: Alert, Oriented x3, Cooperative Extremities: No Calf Tenderness, Peripheral Pulses Normal Skin: No rashes, Incision - See objective findings for incision site description Musculoskeletal: No Tenderness to Palpation of Joints or Extremities Psych/Mental Status: Normal Affect Comment: Patient is doing well 24 horus post-op from I and D of left hand Vital Signs Temp Pulse Resp BP Pulse Ox 97.9 F 82 18 155/87 H 97 09/02/18 08:45 09/02/18 08:45 09/02/18 08:45 09/02/18 08:45 09/02/18 08:45 Oxygen Delivery Method Room Air Weight: 227 lb 1.218 oz Body Mass Index (BMI) 30.8 Finger Stick Blood Glucose 112 Intake and Output for Last 24 Hours 08/31/18 09/01/18 09/02/18 23:59 23:59 23:59 Intake Total 2980 / 2980 1700 / 1700 Output Total 200 / 200 Balance 2780 / 2780 1700 / 1700 Microbiology Past 72 Hours 09/01/18 15:10 Gram Stain - Final Tissue - Hand Wound Culture - Preliminary No growth-Final to follow 08/31/18 12:40 Gram Stain - Final Bite, Dog Wound Culture - Preliminary Gram negative heriberto Laboratory Tests Past 24 Hrs 09/02/18 09/02/18 06:10 06:10 WBC 8.2 RBC 5.04 Hgb 15.1 Hct 43.6 MCV 86.5 MCH 30.0 MCHC 34.6 RDW 13.9 RDW Differential 43.8 Plt Count 204 MPV 10.1 Immature Gran % (Auto) 0.100 Neut % (Auto) 71.5 H Lymph % (Auto) 20.4 [place] % (Auto) 7.3 Eos % (Auto) 0.6 Baso % (Auto) 0.1 Absolute Neuts (auto) 5.9 Absolute Lymphs (auto) 1.68 Total Counted Not Reportable Sodium 135 L Potassium 4.0 Chloride 102 Carbon Dioxide 27.0 Anion Gap 6 BUN 11 Creatinine 1.16 Estim Creat Clear Calc 86.41 Est GFR (MDRD) Af Amer 87 Est GFR (MDRD) Non-Af 72 BUN/Creatinine Ratio 9.5 L Glucose 219 H Calcium 8.9 Magnesium 2.1 POC Glucose 09/02/18 09/02/18 09/01/18 11:29 06:37 22:58 POC Glucose 310 H 218 H 224 H 09/01/18 16:37 POC Glucose 164 H Medical Necessity - Tobacco Use Smoking Status: Never smoker Tobacco Use: Non-smoker Assessment/Plan All Active Problems Infected animal bite of hand (Acute) Patient is doing very good 24 hours post-op from I and D of left hand following a dog bite. Wound has very good approximation and has no signs of acute infection. He is neuro intact with good sensation, movements, and strength in the wrist, hand, and fingers. He is currently awaiting culture results in order to be placed on appropriate antibiotic coverage before being discharged home. He already has a follow-up appt made for Wednesday at the wound center. He will be able to change the dressing once daily. Would try to keep area clean and dry. If it gets wet, pat it dry. I do not want him to soak the hand or immerse the hand in water. Keep elevated and can ice for swelling. Monitor and notify of increased pain, swelling, erythema, discharge, or any other signs/symptoms of the hand.
[2018-09-02 16:35] LABS: Bedside Glucose 246 mg/dL (70-110)
[2018-09-02 19:59] VITALS: BP 150/93; PULSE 72; RESP 16; TEMP 36.7; O2SAT 98
[2018-09-02 22:55] LABS: Bedside Glucose 248 mg/dL (70-110)
[2018-09-03 03:00] VITALS: BP 151/102; PULSE 66; RESP 16; TEMP 36.6; O2SAT 99
[2018-09-03] MEDS: 0.9% Normal Saline 1,000 ML 100 ML IV (06:05)
[2018-09-03] MEDS: Insulin Lispro 100 UNIT/ML INSULN.PEN SC ×2 (06:09→11:40)
[2018-09-03 06:30] LABS: Bedside Glucose 252 mg/dL (70-110)
[2018-09-03 06:46] LABS: Absolute Lymphocyte Count 2.88 X10^3/ul (0.83-4.51); Absolute Neutrophil Count 2.5 X10^3/uL (2.0-7.7); Basophil# 0.02 X10^3/uL; Basophil% 0.3 % (0-1); Eosinophil# 0.19 X10^3/uL; Eosinophils% 3.1 % (0-5); Hematocrit 43.4 % (40-54); Hemoglobin 14.7 g/dl (13.0-16.5); Lymphocyte # 2.88 X10^3/ul (4.0); Lymphocyte % 47.5 % (19-41); Mean Corp Hgb Conc 33.9 g/gl (32-36); Mean Corpuscular Hgb 29.6 pg (27.0-32.0); Mean Corpuscular Volume 87.5 fL (80-94); Mean Platelet Vol. 9.9 fl (6.2-12.0); Monocyte# 0.44 X10^3/uL; Monocyte% 7.3 % (0-10); Neutrophil # 2.52 X10^3/uL (2.7-7.7); Neutrophil % 41.6 % (47-70); POSITIVE COUNT NO; POSITIVE DIFFERENTIAL NO; POSITIVE MORPHOLOGY NO; Platelet Count 182 K/mm3 (150-450); RBC Distribution Width SD 44.8 fl (35.1-43.9); Red Blood Count 4.96 M/mm3 (4.6-6.2); White Blood Count 6.1 K/mm3 (4.4-11.0)
[2018-09-03 07:03] LABS: Anion Gap 6 (5-15); BUN 10 mg/dL (7-18); BUN/Creat Ratio 8.9 RATIO (10-20); Calcium,Total 8.7 mg/dL (8.5-10.1); Chloride 104 mmol/L (98-107); Creatinine, Serum 1.12 mg/dL (0.70-1.30); EST Glomerular Filtration Rate 75 mL/min (>60); Est Glom Filt Rate - Afr Amer 90 mL/min (>60); Estimated Creatinine Clearance 89.49 ml/min; Glucose 204 mg/dL (74-106); Potassium 3.9 mmol/L (3.5-5.1); Sodium Level 139 mmol/L (136-145)
[2018-09-03] MEDS: HYDROcodone Bitartrate/Apap 5/325 Tablet PO (07:04)
[2018-09-03 07:33] VITALS: BP 154/96; PULSE 63; RESP 18; TEMP 37.1; O2SAT 100
--- NOTE | 2018-09-03 08:41 | PCM.DC.SUM ---
Discharge Date and Diagnosis - Problem List Patient Problems: Active and Suspected Problems Infected animal bite of hand (Acute) Date of Admission: 08/31/18 Date of Discharge: 09/03/18 - Primary Discharge Diagnosis Active and Suspected Problems Infected animal bite of hand (Acute) - Secondary Discharge Diagnosis Chronic Problems Diabetes mellitus, type II (Chronic) Obesity (Chronic) Chronic neck pain (Chronic) HLD (hyperlipidemia) (Chronic) Anxiety and depression (Chronic) Hospital Course and Treatment Consultations 08/31/18 15:44 Consult: Onc/Wound/integration software engineer Routine Comment: 09/01/18 15:10 Consult: Onc/Wound/integration software engineer Routine Comment: Reason for Consult:: packing removal 09/02 in am Summary of Care Provided: Patient is a 48-year-old lady who left hand swelling following a dog bite. Patient's dog was a domestic dog registry dog 1. Left hand infected dog bite with Pasteurella multocida. Patient was started on Zosyn and vancomycin from the emergency department. MRSA screen came back negative vancomycin discontinued. Consultation was placed to orthopedic surgery. Patient underwent incision/drainage/irrigation/debridement left palmar thenar eminence 09/01/[address] Lugo; patient was sent home on Keflex based on culture results 2. Diabetes mellitus type II: Controlled/uncontrolled, patient's oral hypoglycemics held. Placed on long acting insulin, Accu-Cheks a.c. and at bedtime and covered with sliding scale insulin 3. Hypertension-blood pressure controlled, home medications continued with dose adjustment as needed 4. Dyslipidemia-patient is on statin therapy, continued at home dose 5. 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 Obesity with BMI of 30.8 weight loss advised 7. Depression with anxiety patient is on Cymbalta 8. GERD on PPI 9. DVT prophylaxis Lovenox Patient Problems: Active and Suspected Problems Infected animal bite of hand (Acute) Objective: GENERAL: cooperative HEENT: Atraumatic; moist oral mucosa EYES; Anicteric, Normal Conjunctiva NECK; supple, normal thyroid, no distended JVD. RESPIRATORY: Diminished to auscultation bilaterally, CARDIOVASCULAR: Regular S1 S2, no audible murmurs GI: soft, non-tender, normoactive bowel sounds, : No Renal angle tenderness; EXTREMITIES: Left hand and surgical dressing NEURO: Awake; no lateralizing signs. SKIN: As described above - Physical Exam Vital Signs Temp Pulse Resp BP Pulse Ox 98.8 F 63 18 154/96 H 100 09/03/18 07:33 09/03/18 07:33 09/03/18 07:33 09/03/18 07:33 09/03/18 07:33 Oxygen Delivery Method CPAP Weight: 103 kg Body Mass Index (BMI) 30.8 Finger Stick Blood Glucose 112 Intake and Output for Last 24 Hours 09/01/18 09/02/18 09/03/18 23:59 23:59 23:59 Intake Total 2980 / 2980 1700 / 1700 1923 Output Total 200 / 200 Balance 2780 / 2780 1700 / 1700 1923 Microbiology Past 72 Hours 08/31/18 12:40 Gram Stain - Final Bite, Dog Wound Culture - Final Pasteurella multocida 09/01/18 15:10 Gram Stain - Final Tissue - Hand Wound Culture - Preliminary No growth-Final to follow Laboratory Tests Past 24 Hrs 09/03/18 09/03/18 05:44 05:44 WBC 6.1 RBC 4.96 Hgb 14.7 Hct 43.4 MCV 87.5 MCH 29.6 MCHC 33.9 RDW 14.0 RDW Differential 44.8 H Plt Count 182 MPV 9.9 Immature Gran % (Auto) 0.200 Neut % (Auto) 41.6 L Lymph % (Auto) 47.5 H [place] % (Auto) 7.3 Eos % (Auto) 3.1 Baso % (Auto) 0.3 Absolute Neuts (auto) 2.5 Absolute Lymphs (auto) 2.88 Total Counted Not Reportable Sodium 139 Potassium 3.9 Chloride 104 Carbon Dioxide 29.0 Anion Gap 6 BUN 10 Creatinine 1.12 Estim Creat Clear Calc 89.49 Est GFR (MDRD) Af Amer 90 Est GFR (MDRD) Non-Af 75 BUN/Creatinine Ratio 8.9 L Glucose 204 H Calcium 8.7 POC Glucose 09/03/18 09/02/18 09/02/18 06:08 21:47 16:26 POC Glucose 252 H 248 H 246 H 09/02/18 11:29 POC Glucose 310 H Discharge Diet: 2000 Calorie Control Diet Discharge Activity: Return to Normal Activity, May not drive while taking narcotic pain medications. Home Medications: Medications to take at Discharge Duloxetine Hcl [Cymbalta] 60 mg PO DAILY 10/30/15 Metformin(XR) [Glucophage Xr] 500 mg PO DAILY 08/18/18 Tizanidine HCl 4 mg PO BID 08/28/18 Atorvastatin Calcium [Lipitor] 20 mg PO QHS 08/31/18 Ranitidine HCl 300 mg PO BID 08/31/18 Cephalexin [Keflex] 500 mg PO Q8 #30 capsule 09/03/18 Hydrocodone Bitart/Apap 5-325 [[place] 5/325] 1 tablet PO Q4H PRN PRN #12 tablet 09/03/18 Following Prescrptions Were Given to Patient: Cephalexin [Keflex] 500 mg PO Q8 #30 capsule Hydrocodone Bitart/Apap 5-325 [[place] 5/325] 1 tablet PO Q4H PRN PRN #12 tablet PRN Reason: Mod-Severe Pain (4-02/16) Primary Care Physician: Biju Sifuentes MD [Primary Care Provider] - Please Follow Up With: Douglas Dangelo MD When: Next week at the wound center Please Follow Up With: Yarely Lugo DO When: on 09/06/2018 Disposition: Home Minutes spent on discharge:: 45 Patient Condition:: Stable Medical Necessity - Tobacco Use Smoking Status: Never smoker Tobacco Use: Non-smoker Meaningful Use Info Meaningful Use Diagnoses (Choose all that apply): None applicable Code Visit Inpatient E&M: 49887 Disch Hosp
--- NOTE | 2018-09-03 08:44 | DS.PCM_ITS ---
Discharge Date and Diagnosis - Problem List Patient Problems: Active and Suspected Problems Infected animal bite of hand (Acute) Date of Admission: 08/31/18 Date of Discharge: 09/03/18 - Primary Discharge Diagnosis Active and Suspected Problems Infected animal bite of hand (Acute) - Secondary Discharge Diagnosis Chronic Problems Diabetes mellitus, type II (Chronic) Obesity (Chronic) Chronic neck pain (Chronic) HLD (hyperlipidemia) (Chronic) Anxiety and depression (Chronic) Hospital Course and Treatment Consultations 08/31/18 15:44 Consult: Onc/Wound/games dealer Routine Comment: 09/01/18 15:10 Consult: Onc/Wound/games dealer Routine Comment: Reason for Consult:: packing removal 09/02 in am Summary of Care Provided: Patient is a 48-year-old lady who left hand swelling following a dog bite. Patient's dog was a domestic dog registry dog 1. Left hand infected dog bite with Pasteurella multocida. Patient was started on Zosyn and vancomycin from the emergency department. MRSA screen came back negative vancomycin discontinued. Consultation was placed to orthopedic surgery. Patient underwent incision/drainage/irrigation/debridement left palmar thenar eminence 09/01/[address] Lugo; patient was sent home on Keflex based on culture results 2. Diabetes mellitus type II: Controlled/uncontrolled, patient's oral hypoglycemics held. Placed on long acting insulin, Accu-Cheks a.c. and at bedtime and covered with sliding scale insulin 3. Hypertension-blood pressure controlled, home medications continued with dose adjustment as needed 4. Dyslipidemia-patient is on statin therapy, continued at home dose 5. 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 Obesity with BMI of 30.8 weight loss advised 7. Depression with anxiety patient is on Cymbalta 8. GERD on PPI 9. DVT prophylaxis Lovenox Patient Problems: Active and Suspected Problems Infected animal bite of hand (Acute) Objective: GENERAL: cooperative HEENT: Atraumatic; moist oral mucosa EYES; Anicteric, Normal Conjunctiva NECK; supple, normal thyroid, no distended JVD. RESPIRATORY: Diminished to auscultation bilaterally, CARDIOVASCULAR: Regular S1 S2, no audible murmurs GI: soft, non-tender, normoactive bowel sounds, : No Renal angle tenderness; EXTREMITIES: Left hand and surgical dressing NEURO: Awake; no lateralizing signs. SKIN: As described above - Physical Exam Vital Signs Temp Pulse Resp BP Pulse Ox 98.8 F 63 18 154/96 H 100 09/03/18 07:33 09/03/18 07:33 09/03/18 07:33 09/03/18 07:33 09/03/18 07:33 Oxygen Delivery Method CPAP Weight: 103 kg Body Mass Index (BMI) 30.8 Finger Stick Blood Glucose 112 Intake and Output for Last 24 Hours 09/01/18 09/02/18 09/03/18 23:59 23:59 23:59 Intake Total 2980 / 2980 1700 / 1700 1923 Output Total 200 / 200 Balance 2780 / 2780 1700 / 1700 1923 Microbiology Past 72 Hours 08/31/18 12:40 Gram Stain - Final Bite, Dog Wound Culture - Final Pasteurella multocida 09/01/18 15:10 Gram Stain - Final Tissue - Hand Wound Culture - Preliminary No growth-Final to follow Laboratory Tests Past 24 Hrs 09/03/18 09/03/18 05:44 05:44 WBC 6.1 RBC 4.96 Hgb 14.7 Hct 43.4 MCV 87.5 MCH 29.6 MCHC 33.9 RDW 14.0 RDW Differential 44.8 H Plt Count 182 MPV 9.9 Immature Gran % (Auto) 0.200 Neut % (Auto) 41.6 L Lymph % (Auto) 47.5 H [place] % (Auto) 7.3 Eos % (Auto) 3.1 Baso % (Auto) 0.3 Absolute Neuts (auto) 2.5 Absolute Lymphs (auto) 2.88 Total Counted Not Reportable Sodium 139 Potassium 3.9 Chloride 104 Carbon Dioxide 29.0 Anion Gap 6 BUN 10 Creatinine 1.12 Estim Creat Clear Calc 89.49 Est GFR (MDRD) Af Amer 90 Est GFR (MDRD) Non-Af 75 BUN/Creatinine Ratio 8.9 L Glucose 204 H Calcium 8.7 POC Glucose 09/03/18 09/02/18 09/02/18 06:08 21:47 16:26 POC Glucose 252 H 248 H 246 H 09/02/18 11:29 POC Glucose 310 H Discharge Diet: 2000 Calorie Control Diet Discharge Activity: Return to Normal Activity, May not drive while taking narcotic pain medications. Home Medications: Medications to take at Discharge Duloxetine Hcl [Cymbalta] 60 mg PO DAILY 10/30/15 Metformin(XR) [Glucophage Xr] 500 mg PO DAILY 08/18/18 Tizanidine HCl 4 mg PO BID 08/28/18 Atorvastatin Calcium [Lipitor] 20 mg PO QHS 08/31/18 Ranitidine HCl 300 mg PO BID 08/31/18 Cephalexin [Keflex] 500 mg PO Q8 #30 capsule 09/03/18 Hydrocodone Bitart/Apap 5-325 [[place] 5/325] 1 tablet PO Q4H PRN PRN #12 tablet 09/03/18 Following Prescrptions Were Given to Patient: Cephalexin [Keflex] 500 mg PO Q8 #30 capsule Hydrocodone Bitart/Apap 5-325 [[place] 5/325] 1 tablet PO Q4H PRN PRN #12 tablet PRN Reason: Mod-Severe Pain (4-02/16) Primary Care Physician: Biju Sifuentes MD [Primary Care Provider] - Please Follow Up With: Douglas Dangelo MD When: Next week at the wound center Please Follow Up With: Yarely Lugo DO When: on 09/06/2018 Disposition: Home Minutes spent on discharge:: 45 Patient Condition:: Stable Medical Necessity - Tobacco Use Smoking Status: Never smoker Tobacco Use: Non-smoker Meaningful Use Info Meaningful Use Diagnoses (Choose all that apply): None applicable Code Visit Inpatient E&M: 09024 Disch Hosp
[2018-09-03] MEDS: tiZANidine HCl 2 MG Tablet 4 MG PO (09:30)
[2018-09-03] MEDS: DULoxetine Hcl 60 MG Capsule PO (09:30)
--- NOTE | 2018-09-03 11:17 | DCINST_ITS ---
- Discharge Diagnoses Current Active Problems: Current Active and Chronic Problems Infected animal bite of hand (Acute) Diabetes mellitus, type II (Chronic) Obesity (Chronic) Chronic neck pain (Chronic) HLD (hyperlipidemia) (Chronic) Anxiety and depression (Chronic) You will use the following diet at home:: Calorie/Carbohydrate Controlled (specify 1200, 1400, etc) - 1800 Your food should be the consistency of: Regular Discharge Activity: Return to Normal Activity, May not drive while taking narcotic pain medications. Allergies/Adverse Reactions: Allergies No Known Allergies Allergy (Verified 08/31/18 12:11) Medications to take at Discharge Duloxetine Hcl [Cymbalta] 60 mg PO DAILY 10/30/15 Metformin(XR) [Glucophage Xr] 500 mg PO DAILY 08/18/18 Tizanidine HCl 4 mg PO BID 08/28/18 Atorvastatin Calcium [Lipitor] 20 mg PO QHS 08/31/18 Ranitidine HCl 300 mg PO BID 08/31/18 Cephalexin [Keflex] 500 mg PO Q8 #30 capsule 09/03/18 Hydrocodone Bitart/Apap 5-325 [[place] 5/325] 1 tablet PO Q4H PRN PRN #12 tablet 09/03/18 The following prescriptions were given: Cephalexin [Keflex] 500 mg PO Q8 #30 capsule Hydrocodone Bitart/Apap 5-325 [[place] 5/325] 1 tablet PO Q4H PRN PRN #12 tablet PRN Reason: Mod-Severe Pain (4-10/10) Primary Care Physician: Biju Sifuentes MD [Primary Care Provider] - Test Results: Test results from this visit will be discussed in further detail at your follow- up appointment, if applicable. Please Follow Up With: Douglas Dangelo MD When: Next week at the wound center Please Follow Up With: Yarely Lugo DO When: on 09/06/2018 Proposed Discharge Date: 09/03/18
[2018-09-03 11:46] LABS: Bedside Glucose 228 mg/dL (70-110)
--- NOTE | 2018-09-06 15:01 | CASEMGMT ---
MICHEL CM DC PHONE CALL DC DATE: 09/03/18 DC Disposition: Home LACE/STRATA: 01/10 Attempted call to phone. No answer and no message machine noted. Lindsey MEREDITHN RN ACM
== END 2018-09-03 12:50 | disposition home or self-care (01) | DRG 580 ==
LOC: ED 12:37 → MS3 13:50
PROVIDERS: Anesthesiology; Orthopaedic Surgery; Admitting Provider Family Medicine; Emergency Provider Emergency Medicine; Family Provider Family Medicine; PCP Family Medicine; Referring Provider Family Medicine; Visit Provider Internal Medicine
PROC: 0JBK0ZZ Excision of Left Hand Subcutaneous Tissue and Fascia, Open Approach (ICD-10-PCS; principal; 2018-09-01 13:25)
DX: S61.452A Open bite of left hand, initial encounter (principal); L03.114 Cellulitis of left upper limb; B96.89 Other specified bacterial agents as the cause of diseases classified elsewhere; W54.0XXA Bitten by dog, initial encounter; E11.9 Type 2 diabetes mellitus without complications; E78.5 Hyperlipidemia, unspecified; Z79.84 Long term (current) use of oral hypoglycemic drugs; E66.9 Obesity, unspecified; Z68.30 Body mass index [BMI] 30.0-30.9, adult; M54.2 Cervicalgia; G89.29 Other chronic pain; K21.9 Gastro-esophageal reflux disease without esophagitis
CPT/HCPCS: 36415; 80048; 82962; 83036; 83735; 85025; 87070; 87075; 87077; 87102; 87186; 87205; 87206; 87640; 93005; 97802; 99282; J7030; J7040; J7120; A4216; J2405

== ENCOUNTER 2018-09-07 10:13 | Outpatient (RCR) | payer OTHER, SELFPAY ==
[2018-09-01 10:55] VITALS: BMI 30.8
[2018-09-07 10:28] VITALS: BP 143/89; PULSE 110; RESP 18; TEMP 36.4; BMI 30.2
--- NOTE | 2018-09-07 13:19 | PCM.WC.HP ---
(1) Encounter for post surgical wound check Status: Acute Current Visit: Yes Code(s): Z48.89 - Encounter for other specified surgical aftercare (2) Infected animal bite of hand Status: Acute Current Visit: Yes Code(s): S61.459A - Open bite of unspecified hand, initial encounter; L08.9 - Local infection of the skin and subcutaneous tissue, unspecified History of Present Illness Date of Service: 09/07/18 Chief Complaint: S/P Incision and drainage to left hand History of Wound: Mr. Sales is a 48-year-old who was recently admitted to the hospital and had incision and drainage/surgical debridement of his left hand secondary to an infected dog bite wound. Surgery was uneventful. He was advised to follow-up with the wound center on discharge. Patient presents today with no concerns. Wound is well opposed with sutures are still in place. Denies drainage.'s pain and swelling is improving daily. Per Patient, his surgeon wants sutures left in place for 2 weeks. Past Medical History Past Medical History: Chronic Problems Diabetes mellitus, type II (Chronic) Obesity (Chronic) Chronic neck pain (Chronic) HLD (hyperlipidemia) (Chronic) Anxiety and depression (Chronic) Surgical History: - - Status post congenital cervical spine deformity intervention following , cholecystectomy, inguinal hernia repair. Allergies/Adverse Reactions: Allergies No Known Allergies Allergy (Verified 08/31/18 12:11) Home Medications: Ambulatory Orders Medication Instructions Recorded Duloxetine Hcl [Cymbalta] 60 mg PO DAILY 10/30/15 Metformin(XR) [Glucophage Xr] 500 mg PO DAILY 08/18/18 Tizanidine HCl 4 mg PO BID 08/28/18 Atorvastatin Calcium [Lipitor] 20 mg PO QHS 08/31/18 Ranitidine HCl 300 mg PO BID 08/31/18 Cephalexin [Keflex] 500 mg PO Q8 #30 capsule 09/03/18 Hydrocodone Bitart/Apap 5-325 1 tablet PO Q4H PRN PRN #12 tablet 09/03/18 [[place] 5/325] - Family History Maternal - - Patient with no market maternal family history including no heart disease, diabetes, cancer. Paternal - - Patient with a paternal family history of diabetes. Smoking Status: Never smoker Review of Systems Constitutional: Denies: Anorexia, Chills, Fever Eyes: Denies: Blurred vision, Pain HEENT: Denies: Difficulty Swallowing Cardiovascular: Denies: Chest Pain, Chest Pressure Respiratory: Denies: Cough, Hemoptysis Gastrointestinal: Denies: Abdominal Pain, Hematemesis, Vomiting Genitourinary: Denies: Hematuria Skin: Denies: Jaundice - Physical Exam Vital Signs Temp Pulse Resp BP 97.5 F L 110 H 18 143/89 H 09/07/18 10:28 09/07/18 10:28 09/07/18 10:28 09/07/18 10:28 General: Alert, Oriented x3, Cooperative, No apparent distress HEENT: Atraumatic, Normocephalic Oral: Moist Mucosa Neck: Supple, No JVD Lungs: Normal air movement Cardiovascular: Regular rate, Regular Rhythm Abdomen: Soft, Non Tender Extremities: No clubbing, No cyanosis Skin: Ulcer/ Wound Wound Measurements and Assessment WC - Nurse 1 - General Ulcer Measurement Start: 09/07/18 10:28 Freq: Status: Active Protocol: Activity Type Activity Date Activity User E-Sign Co-Sign Detail Recorded Client Recorded Date Recorded By Document 09/07/18 10:28 [id number] 09/07/18 10:44 09/07/18 10:28 Wound Center Nurse 1 [Ulcer Assessment] 1-Left hand palm -Combined with other wound No -Current Size (cm) - Length 0.1 -Current Size (cm) - Width 0.1 -Current Size (cm) - Depth 0.1 -Total Square Cm 0.01 -Photo Taken Yes -Epithelialization Large 67-100% -Tunneling No -Undermining/Tunneling No -Circular Undermining No -Exudate Amt None Present -Wound Margin Flat & Intact -Granulation Amt None Present (0 %) -Slough/Fibrin No -Structure Exposed N/A -Texture (Maritza-wound Skin Appearance) No Abnormality Assessed -Moisture (Maritza-wound Skin Appearance No Abnormality ) Assessed -Color (Maritza-wound Skin Appearance) No Abnormality Assessed -Temperature (Maritza-wound Skin No Abnormality Appearance) (Pt Warm) -Tenderness on Palpation (Maritza-wound No Skin Appearance) -Ulcer Cleansing Rinsed/ Irrigated with Saline -Foul Odor after Cleansing No [Edema Assessment] -Lower Limb Edema Present NA WC - Nurse 2 - General Ulcer CM Notes Start: 09/07/18 10:28 Freq: Status: Active Protocol: Activity Type Activity Date Activity User E-Sign Co-Sign Detail Recorded Client Recorded Date Recorded By Document 09/07/18 11:02 MW [id number] 09/07/18 11:09 MW 09/07/18 11:02 Wound Center Nurse 2 [Procedure/Treatment] 1-Left hand palm -Time 11:03 -Correct Patient Yes -Correct Side, Site, Position Yes -Correct Procedure Yes -Procedure Performed No -Post Debridement Size (cm) - Length 0 -Post Debridement Size (cm) - Width 0 -Post Debridement Size (cm) - Depth 0 -Total Square Cm 0 -Wound/Ulcer Outcome Healed- Surgical Closure -Ulcer Cleansing Not Cleansed -Offloading No [See Physician Procedure note for Specifics] Pain Scale: 0-10 Numeric [Pain] -Is Patient Pain Free? Yes Musculoskeletal: No Muscle Wasting Neurological: Cranial nerves II-XII grossly intact Psych/Mental Status: Normal Affect Debridement Note Post-Debridement Measurements/Treatment WC - Nurse 2 - General Ulcer CM Notes Start: 09/07/18 10:28 Freq: Status: Active Protocol: Activity Type Activity Date Activity User E-Sign Co-Sign Detail Recorded Client Recorded Date Recorded By Document 09/07/18 11:02 MW [id number] 09/07/18 11:09 MW 09/07/18 11:02 Wound Center Nurse 2 1-Left hand palm -Time 11:03 -Correct Patient Yes -Correct Side, Site, Position Yes -Correct Procedure Yes -Procedure Performed No -Post Debridement Size (cm) - Length 0 -Post Debridement Size (cm) - Width 0 -Post Debridement Size (cm) - Depth 0 -Total Square Cm 0 -Wound/Ulcer Outcome Healed- Surgical Closure -Ulcer Cleansing Not Cleansed -Offloading No Pain Scale: 0-10 Numeric Is Patient Pain Free? Yes No debridement was completed today Assessment/Plan Active Problems Infected animal bite of hand (Acute) Encounter for post surgical wound check (Acute) Assessment: Postsurgical wound status post surgical debridement/I&D. Type 2 diabetes mellitus. Plan: No debridement was done today. Postsurgical wound is stable and margins are well opposed. No drainage. Swelling and pain said to be improving. Per Patient, his surgeon wants the sutures in place for 2 weeks. Adaptic and gauze over top daily. Advised to follow-up with either his surgeon or primary care physician for suture removal. He was advised to come to the wound center if there is any breakdown after removal. Optimal blood sugar control also recommended. All his questions were answered and he was advised to call with any further questions or concerns. Discharged from the wound center. This note was generated with [employer] dictation software. It may contain incorrect words, spelling, and punctuation that were not noted in checking the note before signing.
--- NOTE | 2018-09-07 13:23 | HP.PCM_ITS ---
(1) Encounter for post surgical wound check Status: Acute Current Visit: Yes Code(s): Z48.89 - Encounter for other specified surgical aftercare (2) Infected animal bite of hand Status: Acute Current Visit: Yes Code(s): S61.459A - Open bite of unspecified hand, initial encounter; L08.9 - Local infection of the skin and subcutaneous tissue, unspecified History of Present Illness Date of Service: 09/07/18 Chief Complaint: S/P Incision and drainage to left hand History of Wound: Mr. Sales is a 48-year-old who was recently admitted to the hospital and had incision and drainage/surgical debridement of his left hand secondary to an infected dog bite wound. Surgery was uneventful. He was advised to follow-up with the wound center on discharge. Patient presents today with no concerns. Wound is well opposed with sutures are still in place. Denies drainage.'s pain and swelling is improving daily. Per Patient, his surgeon wants sutures left in place for 2 weeks. Past Medical History Past Medical History: Chronic Problems Diabetes mellitus, type II (Chronic) Obesity (Chronic) Chronic neck pain (Chronic) HLD (hyperlipidemia) (Chronic) Anxiety and depression (Chronic) Surgical History: - - Status post congenital cervical spine deformity intervention following , cholecystectomy, inguinal hernia repair. Allergies/Adverse Reactions: Allergies No Known Allergies Allergy (Verified 08/31/18 12:11) Home Medications: Ambulatory Orders Medication Instructions Recorded Duloxetine Hcl [Cymbalta] 60 mg PO DAILY 10/30/15 Metformin(XR) [Glucophage Xr] 500 mg PO DAILY 08/18/18 Tizanidine HCl 4 mg PO BID 08/28/18 Atorvastatin Calcium [Lipitor] 20 mg PO QHS 08/31/18 Ranitidine HCl 300 mg PO BID 08/31/18 Cephalexin [Keflex] 500 mg PO Q8 #30 capsule 09/03/18 Hydrocodone Bitart/Apap 5-325 1 tablet PO Q4H PRN PRN #12 tablet 09/03/18 [[place] 5/325] - Family History Maternal - - Patient with no market maternal family history including no heart disease, diabetes, cancer. Paternal - - Patient with a paternal family history of diabetes. Smoking Status: Never smoker Review of Systems Constitutional: Denies: Anorexia, Chills, Fever Eyes: Denies: Blurred vision, Pain HEENT: Denies: Difficulty Swallowing Cardiovascular: Denies: Chest Pain, Chest Pressure Respiratory: Denies: Cough, Hemoptysis Gastrointestinal: Denies: Abdominal Pain, Hematemesis, Vomiting Genitourinary: Denies: Hematuria Skin: Denies: Jaundice - Physical Exam Vital Signs Temp Pulse Resp BP 97.5 F L 110 H 18 143/89 H 09/07/18 10:28 09/07/18 10:28 09/07/18 10:28 09/07/18 10:28 General: Alert, Oriented x3, Cooperative, No apparent distress HEENT: Atraumatic, Normocephalic Oral: Moist Mucosa Neck: Supple, No JVD Lungs: Normal air movement Cardiovascular: Regular rate, Regular Rhythm Abdomen: Soft, Non Tender Extremities: No clubbing, No cyanosis Skin: Ulcer/ Wound Wound Measurements and Assessment WC - Nurse 1 - General Ulcer Measurement Start: 09/07/18 10:28 Freq: Status: Active Protocol: Activity Type Activity Date Activity User E-Sign Co-Sign Detail Recorded Client Recorded Date Recorded By Document 09/07/18 10:28 [id number] 09/07/18 10:44 09/07/18 10:28 Wound Center Nurse 1 [Ulcer Assessment] 1-Left hand palm -Combined with other wound No -Current Size (cm) - Length 0.1 -Current Size (cm) - Width 0.1 -Current Size (cm) - Depth 0.1 -Total Square Cm 0.01 -Photo Taken Yes -Epithelialization Large 67-100% -Tunneling No -Undermining/Tunneling No -Circular Undermining No -Exudate Amt None Present -Wound Margin Flat & Intact -Granulation Amt None Present (0 %) -Slough/Fibrin No -Structure Exposed N/A -Texture (Maritza-wound Skin Appearance) No Abnormality Assessed -Moisture (Maritza-wound Skin Appearance No Abnormality ) Assessed -Color (Maritza-wound Skin Appearance) No Abnormality Assessed -Temperature (Maritza-wound Skin No Abnormality Appearance) (Pt Warm) -Tenderness on Palpation (Maritza-wound No Skin Appearance) -Ulcer Cleansing Rinsed/ Irrigated with Saline -Foul Odor after Cleansing No [Edema Assessment] -Lower Limb Edema Present NA WC - Nurse 2 - General Ulcer CM Notes Start: 09/07/18 10:28 Freq: Status: Active Protocol: Activity Type Activity Date Activity User E-Sign Co-Sign Detail Recorded Client Recorded Date Recorded By Document 09/07/18 11:02 MW [id number] 09/07/18 11:09 MW 09/07/18 11:02 Wound Center Nurse 2 [Procedure/Treatment] 1-Left hand palm -Time 11:03 -Correct Patient Yes -Correct Side, Site, Position Yes -Correct Procedure Yes -Procedure Performed No -Post Debridement Size (cm) - Length 0 -Post Debridement Size (cm) - Width 0 -Post Debridement Size (cm) - Depth 0 -Total Square Cm 0 -Wound/Ulcer Outcome Healed- Surgical Closure -Ulcer Cleansing Not Cleansed -Offloading No [See Physician Procedure note for Specifics] Pain Scale: 0-10 Numeric [Pain] -Is Patient Pain Free? Yes Musculoskeletal: No Muscle Wasting Neurological: Cranial nerves II-XII grossly intact Psych/Mental Status: Normal Affect Debridement Note Post-Debridement Measurements/Treatment WC - Nurse 2 - General Ulcer CM Notes Start: 09/07/18 10:28 Freq: Status: Active Protocol: Activity Type Activity Date Activity User E-Sign Co-Sign Detail Recorded Client Recorded Date Recorded By Document 09/07/18 11:02 MW [id number] 09/07/18 11:09 MW 09/07/18 11:02 Wound Center Nurse 2 1-Left hand palm -Time 11:03 -Correct Patient Yes -Correct Side, Site, Position Yes -Correct Procedure Yes -Procedure Performed No -Post Debridement Size (cm) - Length 0 -Post Debridement Size (cm) - Width 0 -Post Debridement Size (cm) - Depth 0 -Total Square Cm 0 -Wound/Ulcer Outcome Healed- Surgical Closure -Ulcer Cleansing Not Cleansed -Offloading No Pain Scale: 0-10 Numeric Is Patient Pain Free? Yes No debridement was completed today Assessment/Plan Active Problems Infected animal bite of hand (Acute) Encounter for post surgical wound check (Acute) Assessment: Postsurgical wound status post surgical debridement/I&D. Type 2 diabetes mellitus. Plan: No debridement was done today. Postsurgical wound is stable and margins a re well opposed. No drainage. Swelling and pain said to be improving. Per Patient, his surgeon wants the sutures in place for 2 weeks. Adaptic and gauze over top daily. Advised to follow-up with either his surgeon or primary care physician for suture removal. He was advised to come to the wound center if there is any breakdown after removal. Optimal blood sugar control also recommended. All his questions were answered and he was advised to call with any further questions or concerns. Discharged from the wound center. This note was generated with [employer] dictation software. It may contain incorrect words, spelling, and punctuation that were not noted in checking the note before signing.
== END 2018-10-07 23:59 ==
LOC: WC 10:13
PROVIDERS: Family Provider Family Medicine; PCP Family Medicine; Visit Provider Internal Medicine
DX: S61.452A Open bite of left hand, initial encounter (principal); W54.0XXA Bitten by dog, initial encounter; E11.9 Type 2 diabetes mellitus without complications; Z79.84 Long term (current) use of oral hypoglycemic drugs; E78.5 Hyperlipidemia, unspecified; F41.9 Anxiety disorder, unspecified; F32.9 Major depressive disorder, single episode, unspecified; Z79.899 Other long term (current) drug therapy; G89.29 Other chronic pain; E66.9 Obesity, unspecified; Z68.30 Body mass index [BMI] 30.0-30.9, adult; Z71.3 Dietary counseling and surveillance
CPT/HCPCS: 99213; G0463

== ENCOUNTER 2018-10-10 14:30 | Outpatient (RCR) | payer OTHER, SELFPAY ==
[2018-09-20 08:13] VITALS: BMI 30.2
--- NOTE | 2018-09-21 16:19 | HP.OTEVAL_ITS ---
Patient's Visit Information STEVEN LABOY is a 48 year old M, referred to Occupational Therapy by Yarely Lugo DO, with a diagnosis of left hand infection. Date of Evaluation: 09/21/18 Occupational Therapist: Esther Rao, RONNELLR/Keegan, CHT - Subjective Subjective: PT is a 48-year-old male who had a dog bite to his left hand while playing with his dog and accidentally startled dog. Patient was initially seen in the ER 08/30/18 wound was washed out and stitched patient was then pushing on hand and noted there was pus coming out of his incision around these sutures have patient went back to the ER where he was washed out again and admitted for IV antibiotics. Pt had open irrigation 09/01/[address] Lugo. pt arrives today with steri strip over left palm incison- states pain around thumb and lack of strength to perform his daily occupations. 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 Pt will demo an increase in lateral and tripod pinch by 2# to increase pts independent with opening baggies, containers at PLOF by D/C. Goal:: Pt will demo understanding of scar mtg. by end of 2nd session to increase tissue extensibility to limit scar adhesions and allow full tendons function by d/c. Goal:: pt will report return PLOF with ADLs and IADLS without weakness or pain interfering by d/c - Rehabilitation General Assessment: Pt arrives following open irrigation on 09/01/18. 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 Pt would benefit from skilled OT services 1-2 x week for 4 weeks. therapy will clean incision and ed. pt on scar mtg and initiate PRE to return pt to PLOF. Today pt was ed. on scar mtg, tendon gluiding ex. and given handouts. pt demo understanding and agrees to POC. Rehabilitation Potential: Good - Anticipated Interventions Anticipated Interventions: A/AAROM/PROM, Strengthening, Scar Care, Triggerpoint Release, Desensitization, Wound Care, Modalities - Visit Plan Frequency: 1-2x /Week TEXT: Thank you for the opportunity to evaluate your patient. For Medicare and Medicare HMO plans, please review the plan of care and approve it. It will need to be FAXED BACK to us at [phone] for Medicare purposes. Please let me know if there are questions or concerns regarding this plan of care. Physician Signature: Date:
--- NOTE | 2018-10-12 09:32 | HP.OTDCSUM ---
HP - OT D/C Summary It has been my pleasure to treat STEVEN LABOY under orders from Yarely Lugo DO, for the diagnosis of left hand infection for a total of 6 visit(s). Please see the following information for a summary of their discharge status. - Overall Improvement % Improvement: 80 - Objective Objective/Function: left grade and center marker strength 80#. right grade and center marker 87#. left lateral pinch 14#. left tripod pinch 16#. pt demo functional strength in normal ranges- functional with ADLs and IADLs. - Goals Patient Goals: Regain Strength, Decrease Pain, Improve Fine Motor Skills, Use Hand/Wrist/Arm Normally Again Goal:: PT will demo an increase in grade and center marker strength by 20# to increase independent with basic occupations of daily living to return pt to PLOF by D/C. Pt will demo an increase in lateral and tripod pinch by 2# to increase pts independent with opening baggies, containers at PLOF by D/C. Goal:: Pt will demo understanding of scar mtg. by end of 2nd session to increase tissue extensibility to limit scar adhesions and allow full tendons function by d/c. Goal:: pt will report return PLOF with ADLs and IADLS without weakness or pain interfering by d/c - Plan Plan: pt to cont with HEP, D/C at this time - D/C Information Discharge Comments: Pt was seen for 6 OT visits- therapist ed. pt on scar mtg and initiated PRE and ROM ex to return pt to PLOF. pt has now met OT goals and reports he is ind. with ADLs and work tasks. Pt D/C at this time. If there are questions or concerns regarding this patient's occupational therapy, please fell free to call me at [phone]. Thank you for the referral of this patient. Sincerely, Esther Rao, OTR/L, CHT
== END 2018-10-10 19:00 | disposition home or self-care (01) ==
LOC: OT 14:30
PROVIDERS: Family Provider Family Medicine; PCP Family Medicine; Visit Provider Orthopaedic Surgery
DX: Z98.890 Other specified postprocedural states (principal)
CPT/HCPCS: 97035; 97110; 97166; 97530

== ENCOUNTER 2019-05-06 17:36 | Emergency (ER) | payer OTHER, SELFPAY ==
[2018-10-20 08:15] VITALS: BMI 30.2
[2019-05-06 17:37] VITALS: BP 154/99; PULSE 94; RESP 16; TEMP 36.7; BMI 30.9
--- NOTE | 2019-05-06 19:12 | ED.VISSUMM ---
- ER Visit Summary Date of Service: 05/06/19 Chief Complaint: Back pain History of Present Illness: The patient is a 49 M with right low back pain for 4 days. Nothing seemed to bring it on, but it is worse with movement. It radiates down into his right thigh and he has some paresthesias there. No other neurologic symptoms. No bowel or bladder symptoms. No fever or systemic symptoms. History of diabetes and hyperlipidemia as well as fatty liver. No blood thinners. No trauma. No immune compromise. No cancer. No alcoholism or drug use. Physical Examination: Afebrile and vital signs unremarkable. Alert and oriented. No acute distress. Right lumbar region tender to palpation. No spinal tenderness. Patient has subjective paresthesias but no numbness. No weakness. Neurovascular intact distally. Range of motion intact. Skin appears normal. Abdomen soft and nontender. Test Results: None indicated Emergency Department Course and Treatment: Patient treated with Toradol and Norflex. Will reassess. If he is feeling better, he will be discharged on naproxen and Flexeril. Follow-up with primary care. Treatment Plan: As above Disposition: Discharge Impression: 1. Lumbar back pain This note was generated with [employer] dictation software. It may contain incorrect words, spelling, and punctuation that were not noted in review of the chart prior to signing ED Disposition - Plan for ED Patient: Referrals: Biju Sifuentes MD [Primary Care Provider] -
--- NOTE | 2019-05-06 19:15 | ED.DEP ---
ED Disposition - Plan for ED Patient: Instructions: BACK AND NECK PAIN, General Prescriptions: cycloBENZAPRine HCl [Flexeril] 10 mg PO TID PRN #20 tab PRN Reason: Muscle Spasm Prescription Printed Naproxen [Naprosyn] 500 mg PO BID PRN #20 tab Prescription Printed Referrals: Biju Sifuentes MD [Primary Care Provider] -
[2019-05-06] MEDS: Orphenadrine 60 MG/2 ML Ampul IM (19:21)
[2019-05-06] MEDS: Ketorolac 60 MG/2 ML Vial IM (19:21)
[2019-05-06 20:31] VITALS: BP 143/84; PULSE 84; RESP 16; O2SAT 95
== END 2019-05-06 20:34 | disposition home or self-care (01) ==
PROVIDERS: Emergency Provider Emergency Medicine; Family Provider Family Medicine; PCP Family Medicine
DX: M54.5 Low back pain (principal); R20.2 Paresthesia of skin; E11.9 Type 2 diabetes mellitus without complications; E78.5 Hyperlipidemia, unspecified; Z79.84 Long term (current) use of oral hypoglycemic drugs; Z79.899 Other long term (current) drug therapy
CPT/HCPCS: 96372; 99282

== ENCOUNTER 2019-08-10 13:08 | Emergency (ER) | payer BC, SELFPAY ==
[2019-06-29 13:38] VITALS: BMI 30.9
[2019-08-10 13:08] VITALS: BP 150/91; PULSE 95; RESP 16; TEMP 36.2; O2SAT 99; BMI 31.1
--- NOTE | 2019-08-10 13:23 | ED.VIS.UPPEX ---
History of Present Illness Informant: Patient Occurred: Today Mechanism/Context: Puncture Wound Onset: Today Context: Sudden Onset Timing: Continuous Quality of Pain: Throbbing Location: left index finger Current Severity: Mild Maximum Severity: Mild Worsened by: movement Relieved by: rest Associated Symptoms: Negative for: Parasthesia, Weakness, Loss of Funtion Narrative: 49-year-old [id number] male presents to ED with a laceration to his left index finger. He was cutting someone's hair and the scissors cut his left index finger and punctured it. He has had controlled bleeding with pressure but is concerned for the wound. No numbness or tingling. He states his last tetanus was within the last 2 years. He is not on blood thinners. Tetanus Immunization: <5 years Prior similar symptoms: No Recent Illness/Hospitalization: No <Ralph Patel - Last Filed: 08/10/19 13:23> <Ethan Garcia - Last Filed: 08/10/19 14:24> Chief Complaint: Laceration Past Medical History Prior records reviewed: Yes Past Medical History: None Surgical History: - - Status post congenital cervical spine deformity intervention following , cholecystectomy, inguinal hernia repair. Lives: With Family Smoking Status: Never smoker Alcohol: Occasional - Family History Maternal Family History: Reports: - - Patient with no market maternal family history including no heart disease, diabetes, cancer. Paternal Family History: Reports: - - Patient with a paternal family history of diabetes. <Ralph Patel - Last Filed: 08/10/19 13:23> <Ethan Garcia - Last Filed: 08/10/19 14:24> - Allergies and Home Meds Allergies/Adverse Reactions: Allergies No Known Allergies Allergy (Verified 08/10/19 13:10) Primary Care Physician: Biju Sifuentes MD [Primary Care Provider] - Review of Systems All systems negative except as indicated General: Denies: Chills, Fever, Malaise Eyes: Denies: Visual changes - bilaterally, Blurred Vision - bilaterally, Diplopia ENT: Denies: Rhinorrhea, Sore throat Cardiovascular: Denies: Chest pain, Palpitations, Heart racing Respiratory: Denies: Dyspnea, Cough, Sputum Gastrointestinal: Denies: Abdominal pain, Nausea, Vomiting, Diarrhea Genitourinary: Denies: Dysuria, Hematuria, Frequency Musculoskeletal: Reports: Extremity Pain. Denies: Myalgias, Arthralgias, Neck pain, Back pain, Swelling Skin: Reports: Abrasions. Denies: Rash, Abscess, Wounds Neurological: Denies: Headache, Weakness, Parasthesia, Numbness <Ralph Patel - Last Filed: 08/10/19 13:23> Physical Exam Vital Signs/Narrative: Vital Signs Temp Pulse Resp BP Pulse Ox 08/10/19 13:08 97.2 F L 95 16 150/91 H 99 Inital Vital Signs reviewed: Yes Left Finger: - - Skin avulsion left index finger to the finger pad. Mild active bleeding. It is superficial. He is able to fully flex and extend actively at the PIP, and DIP joints. Capillary refill and sensation are both normal. There is no injury to the nail. No signs of infection are noted throughout his left hand. General: Well nourished, Well developed Head: Normocephalic, Atraumatic Eyes: Perrl, EOMI ENT: No Trauma, Moist Mucous Membranes Neck: Nontender, Full ROM Cardiovascular: Regular rate, Regular rhythm Respiratory: No distress, CTA bilaterally, Chest nontender Abdomen: Soft, Nontender, Nondistended Back: Nontender Skin: Normal color, No rash, Trauma Neurological: Alert, Oriented x3 Psychological: Normal affect, Normal Mood <Ralph Patel - Last Filed: 08/10/19 13:23> Vital Signs/Narrative: Vital Signs Temp Pulse Resp BP Pulse Ox 08/10/19 13:08 97.2 F L 95 16 150/91 H 99 <Ethan Garcia - Last Filed: 08/10/19 14:24> Diagnostic/Tx/Re-eval - Medical Decision Making Patient's tetanus is already up-to-date. Patient has a skin a avulsion. At this time there is nothing to suture, discussed this with patient and he understands. Gelfoam and a pressure dressing will be applied. Discussed with patient proper wound care he was given signs of infection to monitor for and advised to have a wound check with his doctor in 2 days return to the emergency department for worsening symptoms which were discussed. <Ralph Patel - Last Filed: 08/10/19 13:23> - Medical Decision Making Patient presents with a skin avulsion of the finger. His tetanus is already up to date. Exam shows an avulsion to the finger pad area of the third finger of the left hand. There are no wound edges that can be sutured. Patient will have pressure applied to the area and gel foam placed on the area as well to assist in hemostasis. He will also do local wound care at home. <Ethan Garcia - Last Filed: 08/10/19 14:24> ED Disposition <Ralph Patel - Last Filed: 08/10/19 13:23> <Ethan Garcia - Last Filed: 08/10/19 14:24> - Plan for ED Patient: Disposition: Home or Assisted Living Diagnosis: Avulsion of skin of finger without complication Instructions: ED AVULSION LACERATION Referrals: Biju Sifuentes MD [Primary Care Provider] -
[2019-08-10] MEDS: Gelatin Sponge Absorbable 50cm (1) 1 EACH TP (15:13)
== END 2019-08-10 15:18 | disposition home or self-care (01) ==
PROVIDERS: Emergency Provider Physician Assistant Medical; PCP Family Medicine
DX: S61.211A Laceration without foreign body of left index finger without damage to nail, initial encounter (principal); S61.231A Puncture wound without foreign body of left index finger without damage to nail, initial encounter; W45.8XXA Other foreign body or object entering through skin, initial encounter; Y93.89 Activity, other specified; Y99.9 Unspecified external cause status; Z79.84 Long term (current) use of oral hypoglycemic drugs; Z79.1 Long term (current) use of non-steroidal anti-inflammatories (NSAID); Z79.899 Other long term (current) drug therapy; Z90.49 Acquired absence of other specified parts of digestive tract; Z83.3 Family history of diabetes mellitus
CPT/HCPCS: 99282

== ENCOUNTER 2019-12-06 20:13 | Emergency (ER) | payer BC, SELFPAY ==
[2019-12-06 20:14] VITALS: BP 142/79; PULSE 87; RESP 18; TEMP 36.6; O2SAT 97; BMI 30.6
--- NOTE | 2019-12-06 20:20 | RAD_ITS ---
STUDY: X-RAY RIGHT FOOT, FIFTH TOE REASON FOR EXAM: Male, 49 years old. Pain. TECHNIQUE: 3 view(s) of the toe were obtained. COMPARISON: None. FINDINGS: Normal visualized metatarsus. There is small lucencies along the medial aspect of the tarsal joint may represent small erosive changes. There is no obvious fracture. Normal phalanges interphalangeal joints. ? Soft tissue swelling over the lateral aspect of the forefoot. RAD/Toe(s) Min 2 Views IMPRESSION: Question small erosive changes of the medial aspect of the metatarsophalangeal joint. Question gout or inflammatory arthropathy.. Electronically Signed: Pedro Henning DO at 20:36 EDT Tel [phone], Service support ,
--- NOTE | 2019-12-06 21:05 | ED.DCSUM_ITS ---
History of Present Illness Chief Complaint: Lower Extremity Injury Informant: Patient Onset: Days Context: Gradual Onset Current Severity: Moderate Maximum Severity: Moderate Narrative: Patient presents with right fifth toe pain for the past couple of days. Patient states pain is continued to worsen. He does have neuropathy but states this pain does not feel similar. He denies any known injury. No recent wounds to his feet. - Past Medical History (1) Anxiety and depression Status: Chronic (2) Diabetes mellitus, type II Status: Chronic (3) HLD (hyperlipidemia) Status: Chronic Past Medical History - Allergies and Home Meds Allergies/Adverse Reactions: Allergies No Known Allergies Allergy (Verified 12/06/19 20:17) Primary Care Physician: Biju Sifuentes MD [Primary Care Provider] - Prior records reviewed: Yes Surgical History: - - Status post congenital cervical spine deformity in tervention following , cholecystectomy, inguinal hernia repair. Lives: Spouse/ Significant Other Smoking Status: Current every day smoker - Family History Maternal Family History: Reports: - - Patient with no market maternal family history including no heart disease, diabetes, cancer. Paternal Family History: Reports: - - Patient with a paternal family history of diabetes. Review of Systems General: Denies: Chills Eyes: Denies: Visual changes - bilaterally ENT: Denies: Bilateral ear pain Cardiovascular: Denies: Chest pain Respiratory: Denies: Dyspnea, Cough Gastrointestinal: Denies: Abdominal pain, Nausea, Vomiting, Diarrhea Genitourinary: Denies: Dysuria Musculoskeletal: Reports: Extremity Pain Skin: Denies: Rash, Wounds Neurological: Denies: Headache Hematologic: Denies: Easy bruising, Easy bleeding Allergy: Denies: Uticaria Physical Exam Vital Signs/Narrative: Vital Signs Temp Pulse Resp BP Pulse Ox 12/06/19 20:14 97.9 F 87 18 142/79 H 97 Inital Vital Signs reviewed: Yes General: Well nourished, Well developed Head: Normocephalic ENT: Moist mucous membranes Neck: Supple Cardiovascular: Regular rate, Regular rhythm Respiratory: No distress, CTA bilaterally Abdomen: Soft, Nontender, Nondistended Extremities: - - Patient has reproducible tenderness over the MTP joint of the fifth toe. Minimal edema. No significant erythema or warmth. No lesions or open wounds are noted. Skin: Normal color Neurological: Alert, Oriented x3 Psychological: Normal affect Diagnostic/Tx/Re-eval Impressions Toe X-Ray 12/06/19 20:20 IMPRESSION: Question small erosive changes of the medial aspect of the metatarsophalangeal joint. Question gout or inflammatory arthropathy.. Electronically Signed: Pedro Henning DO at 20:36 EDT Tel [phone], Service support , 12/06/19 20:20 Xray Toe [Toe(s) Min 2 Views] [RAD] Stat - Medical Decision Making X-ray does raise question of gout. Patient certainly has tenderness right at the joint which would be consistent. It is not, however, significantly swollen or red. Patient be treated with a short burst of steroids and anti- inflammatories. He was advised that this would make his blood sugars go up for a couple of days. He states he is already advised just to double his metformin if he takes steroids. He will follow-up with his primary care physician. ED Disposition - Plan for ED Patient: Disposition: Home or Assisted Living Diagnosis: Gout Instructions: ED ARTHRITIS Gout Prescriptions: Prednisone [Deltasone] 40 mg PO DAILY #8 tab Transmission Status: Pending to [facility] Naproxen [Naprosyn] 500 mg PO BID PRN PRN #10 tab PRN Reason: Pain Score 4-10/10 Transmission Status: Pending to [facility] Referrals: Biju Sifuentes MD [Primary Care Provider] - 1 Week if not improving
[2019-12-06 21:25] VITALS: BP 155/89; PULSE 67
[2019-12-06] MEDS: Ibuprofen 600 MG Tablet PO (21:39)
[2019-12-06] MEDS: predniSONE 20 MG Tablet 60 MG PO (21:40)
== END 2019-12-06 21:41 | disposition home or self-care (01) ==
LOC: ED 21:08
PROVIDERS: Emergency Provider Emergency Medicine; PCP Family Medicine
DX: M10.9 Gout, unspecified (principal); E11.40 Type 2 diabetes mellitus with diabetic neuropathy, unspecified; E78.5 Hyperlipidemia, unspecified; F32.9 Major depressive disorder, single episode, unspecified; F41.9 Anxiety disorder, unspecified; F17.200 Nicotine dependence, unspecified, uncomplicated; Z79.84 Long term (current) use of oral hypoglycemic drugs; Z79.899 Other long term (current) drug therapy
CPT/HCPCS: 73660; 99284

== ENCOUNTER 2019-12-15 10:48 | Observation (INO) | payer BC, SELFPAY ==
[2019-12-15] VITALS (11 sets, daily range): BP systolic 110–146; BP diastolic 62–93; PULSE 68–83; RESP 16–19; TEMP 36–37.1; O2SAT 95–99; BMI 31.6; BMI 30.6
--- NOTE | 2019-12-15 10:52 | EKG12_ITS ---
Test Reason : CP Blood Pressure : / mmHG Vent. Rate : 075 BPM Atrial Rate : 075 BPM P-R Int : 140 ms QRS Dur : 082 ms QT Int : 374 ms P-R-T Axes : 032 -16 013 degrees QTc Int : 417 ms Normal sinus rhythm Moderate voltage criteria for LVH, may be normal variant Borderline ECG Confirmed by YADIEL LAMB, VALENTINA ([id number]), movie editor DELFINO POPE ([id number]) on 12/19/2019 10:42:21 AM Referred By: MILTON/JOJO Confirmed By:VALENTINA COTTO MD
[2019-12-15] MEDS: Aspirin 81 MG TAB.CHEW 324 MG PO (11:08)
--- NOTE | 2019-12-15 11:09 | ED.VISSUMM ---
- ER Visit Summary Date of Service: 12/15/19 Chief Complaint: Chest pain History of Present Illness: The patient is a 49 M history of gzp-ctrvpbd-cozauqptr diabetes and neuropathy. No prior cardiac history. Negative stress test reportedly about 3 years ago. He states that yesterday he had sudden onset intermittent midsternal chest pain. Describes it as a heaviness. No prior history. Denies any history of DVT or PE. No recent travel or surgery. Denies any shortness of breath, or nausea. One episode of diaphoresis. Denies any leg pain or swelling. There is absolutely no radiation of pain. It does not go to his neck, jaw, arm or back. Better supine. Worse with movement. Physical Examination: Middle-aged male no acute distress vital signs are stable afebrile. Pulse ox 90% on room air no signs of hypoxia. H EENT exam unremarkable. Neck nontender. Lungs clear to auscultation bilaterally. Heart regular rhythm no murmur rate about 75. Chest wall nontender. Abdomen soft nontender. Patient moving all 4 extremities. Calves are nontender without edema.. Neurologically is awake and alert. Equal symmetrical radial pulses. Test Results: EKG shows normal sinus rhythm unchanged from prior EKG from 2019. No ischemia. Chest x-ray portable 1 view read by myself the radiologist shows no acute abnormality. Normal cardiac silhouette mediastinum. CBC normal white count of 6. Hemoglobin 15. Chemistries unremarkable creatinine 1.2 gap of 2 glucose 242 consistent with his history of diabetes. Troponin normal. Emergency Department Course and Treatment: Patient with midsternal chest pain is not reproducible. He is diabetic. This will be treated as a cardiac work-up. He currently has no risk factors or history of PE or DVT. Clinically this does not appear to be a dissection. Also received sublingual nitroglycerin to see if a change in his symptoms. Treatment Plan: Nurses treated the patient with a sublingual nitroglycerin x2 and his pain completely resolved. Given his age and diabetes and response to nitroglycerin I will speak to the hospitalist about admission for further evaluation and work-up of chest pain of uncertain etiology. Disposition: Observation admission Impression: Acute chest pain of uncertain etiology History of diabetes This note was generated with [employer] dictation software. It may contain incorrect words, spelling, and punctuation that were not noted in review of the chart prior to signing ED Disposition - Plan for ED Patient: Referrals: Biju Sifuentes MD [Primary Care Provider] -
--- NOTE | 2019-12-15 11:10 | RAD_ITS ---
STUDY: X-RAY CHEST REASON FOR EXAM: Male, 49 years old. Chest pain TECHNIQUE: Single AP portable view of the chest. COMPARISON: None. FINDINGS: EKG electrodes are seen. The lungs are clear and expanded. There is no demonstrated pleural abnormality. Normal size heart. Normal mediastinum and hallie. Normal visualized pulmonary arteries. Normal visualized aortic arch and descending thoracic aorta. Normal visualized thoracic spine. Normal visualized ribs, clavicles, and shoulders. There is no demonstrated abnormality of the visualized soft tissue structures of the upper abdomen. RAD/Chest 1 View (Portable) IMPRESSION: Normal x-ray examination of the chest. Electronically Signed: Dylan Rea, at 11:25 EDT , Service support ,
[2019-12-15] MEDS: Nitroglycerin SL (ED/IMG/CATH) 0.4 MG TABLET SUBLINGUAL (11:19)
[2019-12-15 11:23] LABS: Absolute Lymphocyte Count 2.65 X10^3/uL (0.83-4.51); Absolute Neutrophil Count 2.8 X10^3/uL (2.0-7.7); Basophil# 0.03 X10^3/uL; Basophil% 0.5 % (0-1); Eosinophil# 0.13 X10^3/uL; Eosinophils% 2.1 % (0-5); Hematocrit 46.8 % (40-54); Hemoglobin 15.7 g/dL (13.0-16.5); Lymphocyte # 2.65 X10^3/ul (4.0); Lymphocyte % 43.2 % (19-41); Mean Corp Hgb Conc 33.5 g/dL (32-36); Mean Corpuscular Hgb 29.9 pg (27.0-32.0); Mean Corpuscular Volume 89.1 fL (80-94); Mean Platelet Vol. 10.2 fl (6.2-12.0); Monocyte# 0.47 X10^3/uL; Monocyte% 7.7 % (0-10); NRBC Flagged by Analyzer 0 % (0-5); Neutrophil # 2.84 X10^3/uL (2.7-7.7); Neutrophil % 46.2 % (47-70); Platelet Count 194 K/mm3 (150-450); RBC Distribution Width CV 13.5 % (11.6-14.6); RBC Distribution Width SD 44.2 fl (35.1-43.9); Red Blood Count 5.25 M/mm3 (4.6-6.2); White Blood Count 6.1 K/mm3 (4.4-11.0)
[2019-12-15] MEDS: Nitroglycerin (INPATIENT USE) 0.4 MG TAB.SUBL SUBLINGUAL (11:27)
[2019-12-15 11:39] LABS: Anion Gap 2 (5-15); BUN 16 mg/dL (7-18); BUN/Creat Ratio 12.9 RATIO (10-20); Calcium,Total 9.2 mg/dL (8.5-10.1); Chloride 103 mmol/L (98-107); Creatinine, Serum 1.24 mg/dL (0.70-1.30); EST Glomerular Filtration Rate 66 mL/min (>60); Est Glom Filt Rate - Afr Amer 80 mL/min (>60); Estimated Creatinine Clearance 79.96 ml/min; Glucose 242 mg/dL (74-106); Sodium Level 137 mmol/L (136-145)
--- NOTE | 2019-12-15 12:05 | NURSING ---
DR WILLIAMSON FOR DR ROSE
--- NOTE | 2019-12-15 12:19 | HP.PCM_ITS ---
Problem List (1) Diabetes mellitus, type II Status: Chronic (2) Chronic neck pain Status: Chronic (3) HLD (hyperlipidemia) Status: Chronic Qualifiers: (4) Anxiety and depression Status: Chronic History of Present Illness Date of Admission: 12/15/19 Chief Complaint: Chest pain. The patient is a 49 year old M with past medical history as mentioned above presented to the emergency room because of chest pain. This pain started yesterday afternoon when he was cleaning, retrosternal chest pain, described as chest heaviness, 10 out of 10 in severity, not radiating, associated with dizziness and sweating and without aggravating or relieving factors. Pain has been constant since yesterday. He denied associated shortness of breath, palpitation, sweating, syncope or presyncope. He mentioned that he was started taking prednisone for ankle sprain few days ago and his blood sugar has been going up up to 400s. Yesterday, he doubled his metformin and his blood sugar remained in the 300 range. During that time, he started having this chest pain. After he came to the emergency department, he was given nitroglycerin and pain improved. In the emergency department, his vital signs were stable. His routine blood work was unremarkable. His EKG revealed normal sinus rhythm, normal RI table, normal QRS, normal QTC, no acute segment changes. Troponin was negative. Chest x-ray showed no acute infiltrate or consolidation, no pneumothorax. He is being admitted for chest pain for evaluation. Past Medical History Past Medical History (Chronic Problems): Chronic Problems (Last Updated 05/24/19 @ 16:06 by Geronimo Dash) Diabetes mellitus, type II (Chronic) Obesity (Chronic) Chronic neck pain (Chronic) HLD (hyperlipidemia) (Chronic) Anxiety and depression (Chronic) Medical History: Medical History (Last Updated 05/24/19 @ 16:06 by Geronimo Dash) Diabetes E11.9 Liver disease K76.9 Allergies No Known Allergies Allergy (Verified 12/06/19 20:17) Home Medications: Ambulatory Orders Medication Instructions Recorded Duloxetine Hcl [Cymbalta] 60 mg PO DAILY 10/30/15 metFORMIN (XR) [Glucophage Xr] 500 mg PO BID 08/18/18 Naproxen [Naprosyn] 500 mg PO BID PRN PRN #10 tab 12/06/19 Atorvastatin Calcium [Lipitor] 20 mg PO QHS 12/15/19 Omeprazole 20 mg PO DAILY 12/15/19 Surgical History: Surgical History (Last Updated 05/24/19 @ 16:06 by Geronimo Dash) History of neck surgery Z98.890 Surgical History: cholecystectomy, herniorrhaphy, - - Status post congenital cer vical spine deformity intervention following . Psychiatric History: Anxiety, Depression Lives: With Family Smoking Status: Never smoker Alcohol: None Drugs: None - *Family History Maternal History Items: - - No family history of premature CAD. Paternal History Items: - - Patient with a paternal family history of diabetes. Review of Systems Constitutional: Denies: Anorexia, Chills, Fever, Weakness Eyes: Denies: Blurred vision, Double vision, Drainage, Redness HEENT: Denies: Difficulty Hearing, Ear Pain, Eye Pain, Nasal Congestion, Sore Throat Cardiovascular: Reports: Chest Pain, Chest Pressure. Denies: Edema, Heaviness, Light Headedness, Palpitations, Paroxysmal Noc. Dyspnea, Syncope Respiratory: Denies: Cough, Pleuritic Pain, Shortness of Breath, Sputum production, Wheezing Gastrointestinal: Denies: Abdominal Pain, Constipation, Diarrhea, Nausea, Vomiting Genitourinary: Denies: Dysuria, Frequency, Hematuria Musculoskeletal: Denies: Arm Pain, Back Pain, Foot Pain Skin: Denies: Dryness, Rash Neurological: Denies: Balance problems, Blurred vision, Change in Speech, Slurred speech, Confusion, Headaches, Incoordination, Numbness Psychiatric: Reports: Anxiety, Depression Endocrine: Denies: Change in Body Habitus, Polydipsia, Polyuria VTE Information - Inpt Only VTE Present on Admission: No VTE Mechan Device Prophylaxis: None VTE Pharm Prophylaxis ordered?: No - Physical Exam Vitals/I&O's: Vital Signs Temp Pulse Resp BP Pulse Ox 98.7 F 74 18 122/77 H 95 12/15/19 10:51 12/15/19 11:50 12/15/19 11:50 12/15/19 11:50 12/15/19 11:50 Oxygen Delivery Method Room Air Weight: 233 lb 6.4 oz Body Mass Index (BMI) 31.6 Finger Stick Blood Glucose 112 General: Alert, Oriented x3, Cooperative, No apparent distress HEENT: Atraumatic, PERRLA, EOMI, Normocephalic Oral: Moist Mucosa, No Gingival or Mucosal Lesions/ Ulcerations Neck: Supple, No JVD, Negative Carotid Bruits, Trachea Midline, Thyroid Normal Size and Texture Lungs: Clear to auscultation, Normal air movement, No rhonchi, No wheeze, No rales Cardiovascular: Regular rate, Regular Rhythm, Normal S1, Normal S2, PMI Normal Abdomen: Bowel Sounds Present, Soft, Non Tender, Non-Distended, No Hepato- splenomegaly Extremities: No clubbing, No cyanosis, No edema Skin: No rashes, No breakdown Lymphatic: No Cervical, Supraclavicular, or Inguinal Adenopathy Neurological: Cranial nerves II-XII grossly intact, Motor Exam 5/5 strength throughout Psych/Mental Status: Normal Affect, Appropriate, Alert and oriented to time, place, person, mood and affect Laboratory Results 12/15/19 11:00: WBC 6.1, RBC 5.25, Hgb 15.7, Hct 46.8, MCV 89.1, MCH 29.9, MCHC 33.5, RDW Std Deviation 44.2 H, RDW Coeff of Naina 13.5, Plt Count 194, MPV 10.2, Immature Gran % (Auto) 0.300, Neut % (Auto) 46.2 L, Lymph % (Auto) 43.2 H, [place] % (Auto) 7.7, Eos % (Auto) 2.1, Baso % (Auto) 0.5, Absolute Neuts (auto) 2.8, Absolute Lymphs (auto) 2.65, Nucleated RBC % 0 12/15/19 11:00: Sodium 137, Potassium 4.0, Chloride 103, Carbon Dioxide 32.0, Anion Gap 2 L, BUN 16, Creatinine 1.24, Estim Creat Clear Calc 79.96, Est GFR (MDRD) Af Amer 80, Est GFR (MDRD) Non-Af 66, BUN/Creatinine Ratio 12.9, Glucose 242 H, Calcium 9.2, Troponin I < 0.015 Clinical Impression(s) from Imaging Studies Chest X-Ray 12/15/19 11:10 IMPRESSION: Normal x-ray examination of the chest. Electronically Signed: Dylan Rea, at 11:25 EDT , Service support , Assessment/Plan This is a 49 years old male patient presented to the emergency room because of chest pain and he is being admitted for evaluation. #1 chest pain: Risk factors are history of diabetes and hyperlipidemia. No family history of premature CAD. Initial EKG revealed no acute ischemic changes. Troponin was negative. Chest x-ray showed no acute findings. Patient mentioned that he had stress test 3 years ago in this hospital which I could not find his chart. Plan: Admit to PCU observation, cardiac monitoring, serial cardiac enzymes, gentle IV fluids for hydration, Tylenol PRN, Zofran PRN, sublingual nitroglycerin as needed for chest pain, nuclear stress test tomorrow morning if cardiac enzymes are negative. #2 type 2 diabetes mellitus: ADA diet, Accu-Cheks, insulin sliding scale, hold metformin. #3 hyperlipidemia: Continue statins. #4 anxiety/depression: Continue Cymbalta. #5 DVT prophylaxis: Low risk patient, no prophylaxis indicated. This note was generated with [employer] dictation software. It may contain incorrect words, spelling, and punctuation that were not noted in checking the note before signing. OBSV E&M: [id number] Initial observation care L3
--- NOTE | 2019-12-15 12:26 | NURSING ---
[facility], JOSE L WILLIAMSON
[2019-12-15] MEDS: 0.9% Saline Lock 10 ML Syringe IV (13:52)
[2019-12-15] MEDS: 0.9% Normal Saline 1,000 ML 75 ML IV (13:52)
--- NOTE | 2019-12-15 14:01 | EKG12_ITS ---
Test Reason : CP Blood Pressure : / mmHG Vent. Rate : 071 BPM Atrial Rate : 071 BPM P-R Int : 142 ms QRS Dur : 082 ms QT Int : 404 ms P-R-T Axes : 057 -14 029 degrees QTc Int : 439 ms Normal sinus rhythm with sinus arrhythmia Voltage criteria for left ventricular hypertrophy Nonspecific ST abnormality Abnormal ECG No previous ECGs available Confirmed by INO LAMB, FARHAN ([id number]), news editor TISHA DYER ([id number]) on 12/20/2019 9:33:59 AM Referred By: CLAY Confirmed By:FARHAN MCKINNON MD
[2019-12-15 16:41] LABS: Bedside Glucose 223 mg/dL (70-110)
[2019-12-15] MEDS: Insulin Lispro 100 UNIT/ML INSULN.PEN SC (16:41)
[2019-12-15] MEDS: Atorvastatin Calcium 20 MG Tablet PO (22:34)
[2019-12-15 22:41] LABS: Bedside Glucose 218 mg/dL (70-110)
[2019-12-16 03:06] VITALS: PULSE 87
[2019-12-16 05:10] VITALS: BP 124/84; PULSE 82; RESP 18; TEMP 36.6; O2SAT 97
[2019-12-16] MEDS: Aspirin E.C. 81 MG Tablet PO (05:21)
--- NOTE | 2019-12-16 05:30 | EKG12_ITS ---
Test Reason : AM EKG Blood Pressure : / mmHG Vent. Rate : 076 BPM Atrial Rate : 076 BPM P-R Int : 134 ms QRS Dur : 082 ms QT Int : 376 ms P-R-T Axes : 058 -20 011 degrees QTc Int : 423 ms Normal sinus rhythm Voltage criteria for left ventricular hypertrophy Abnormal ECG When compared with ECG of 15-DEC-2019 10:53, MANUAL COMPARISON REQUIRED, DATA IS UNCONFIRMED Confirmed by INO LAMB, FARHAN ([id number]), social media editor DELFINO POPE ([id number]) on 12/19/2019 10:50:03 AM Referred By: CLAY Confirmed By:FARHAN MCKINNON MD
[2019-12-16 06:46] LABS: Bedside Glucose 214 mg/dL (70-110)
[2019-12-16 07:00] VITALS: O2SAT 96
[2019-12-16 09:00] VITALS: PULSE 76
--- NOTE | 2019-12-16 10:20 | STRESSREP ---
Stress Test Report Date: 12-16-2019 Procedure: Pharmacologic stress nuclear imaging study Indications: Chest pain Consent: Per the patient Procedure: The patient underwent pharmacologic (Regadenoson) evaluation with a peak heart rate of 112 beats per minute (65 %predicted maximal heart rate) and a peak blood pressure of 128/78 mmHg. The baseline ECG demonstrated normal sinus rhythm. The peak pharmacologic ECG demonstrated no obvious ECG changes. There were no cardiac dysrhythmias pretest, during pharmacologic infusion, or recovery. There was no complaint of chest discomfort during pharmacologic infusion or recovery. The examination was discontinued secondary to completion of protocol. Impression: 1. Pharmacologic (Regadenoson) evaluation 2. Peak pharmacologic ECG with no obvious ECG changes. 3. There were no cardiac dysrhythmias pretest, during pharmacologic infusion, or recovery. 4. Nuclear images pending Myocardial perfusion imaging study: Technique: The patient was injected with 14.0 millicuries of technetium 99m Cardiolite and subsequently rest SPECT Cardiolite nuclear imaging was obtained in the horizontal long, vertical long, and short axis views. The patient underwent pharmacologic (Regadenoson) evaluation with a peak heart rate of 112 beats per minute (65 % percent predicted maximal heart rate) and a peak blood pressure of 128/78 mmHg. The patient was injected with 44.1 millicuries of technetium 99m Cardiolite and subsequently stress SPECT Cardiolite nuclear imaging was obtained in the horizontal long, vertical long, and short axis views. A gated Cardiolite study at peak stress was obtained. Interpretation: Rest and stress SPECT Cardiolite nuclear imaging status post realignment, normalization, and attenuation correction demonstrate relative uniform tracer uptake and myocardial perfusion appearing within normal limits. There is end systolic thickening and brightening. The gated Cardiolite study demonstrates myocardial thickening and inward wall motion. The reported LVEF is 43 %. Impression: 1. Relative uniform tracer uptake and myocardial perfusion appearing within normal limits. 2. The gated Cardiolite study reports an LVEF of 43 %. This note was generated with [employer] software. It may contain incorrect words, spelling, and punctuation that were not noted in checking the note before signing.
--- NOTE | 2019-12-16 10:53 | DCINST_ITS ---
You will use the following diet at home:: Calorie/Carbohydrate Controlled (specify 1200, 1400, etc) - 2000 YANET. Your food should be the consistency of: Regular Discharge Activity: Return to Normal Activity Weight Bearing Status: Full weight bearing Call your doctor if you observe: Fever of 101 or Higher, Shortness of breath, Dizziness, Fainting spells, Chest pain, Increased palpitations (irregular heartbeat), Uncontrolled pain Allergies/Adverse Reactions: Allergies No Known Allergies Allergy (Verified 12/06/19 20:17) Medications to take at Discharge Duloxetine Hcl [Cymbalta] 60 mg PO DAILY 10/30/15 metFORMIN (XR) [Glucophage Xr] 500 mg PO BID 08/18/18 Naproxen [Naprosyn] 500 mg PO BID PRN PRN #10 tab 12/06/19 Atorvastatin Calcium [Lipitor] 20 mg PO QHS 12/15/19 Omeprazole 20 mg PO DAILY 12/15/19 Primary Care Physician: Biju Sifuentes MD [Primary Care Provider] - Please follow up with your Primary Care Physician in: 1-2 WEEKS. Test Results: Test results from this visit will be discussed in further detail at your follow- up appointment, if applicable.
[2019-12-16 11:10] VITALS: BP 123/79; PULSE 87; RESP 18; TEMP 36.8; O2SAT 96
--- NOTE | 2019-12-16 11:37 | ECHOD_ITS ---
Reason For Study: Chest Pain Procedure This was a 2D Doppler, Color Flow transthoracic echocardiogram. The exam was of adequate technical quality. Exam performed portable in patient room. Left Ventricle Normal LV size. Apical false tendon noted. Left ventricular systolic function is normal. The estimated ejection fraction is 55 %. Transmitral doppler flow suggestive of impaired relaxation of left ventricle. No regional wall motion abnormalities noted. Right Ventricle Normal RV size. Normal systolic function. Atria Normal left atrium. Normal right atrium. No doppler evidence for ASD. Mitral Valve There is no mitral annular calcification. Normal mitral valve. Trivial mitral valve insufficiency. Tricuspid Valve Normal tricuspid valve. Mild tricuspid valve insufficiency. Right ventricular systolic pressure estimated to be 29 mmHg. Aortic Valve Trisinus/trileaflet aortic valve. Normal aortic valve. Pulmonic Valve The pulmonic valve is not well visualized. Great Vessels Normal sized aortic root. Pericardium/Pleural No pericardial effusion. MMode/2D Measurements & Calculations LVIDd: 4.8 cm IVSd: 1.1 cm Ao root diam: 3.3 cm LVIDs: 3.4 cm LVPWd: 1.0 cm RVDd: 3.3 cm FS: 28.5 % LAV(MOD-bp): 21.7 ml LA A4 area: 8.4 cm2 LA dimension(2D): 3.5 cm LAV(MOD-bp) Indexed: 9.6 ml/m2 LAV(MOD-sp2): 28.1 ml LAV(MOD-sp4): 15.5 ml RA A4 area: 9.4 cm2 Doppler Measurements & Calculations MV E max victorino: 75.9 cm/sec Lat Peak E' Victorino: 11.0 cm/sec Med Peak E' Victorino: 7.0 cm/sec MV A max victorino: 86.4 cm/sec E/E' lat: 6.9 E/E' med: 10.9 MV E/A: 0.88 Ao V2 max: 128.8 cm/sec LV V1 max: 104.9 cm/sec PA V2 max: 82.5 cm/sec Ao max P.6 mmHg LV V1 max P.4 mmHg Ao V2 mean: 96.0 cm/sec Ao mean P.9 mmHg Ao V2 VTI: 22.3 cm TR max victorino: 256.7 cm/sec TR max P.4 mmHg Interpretation Summary Left ventricular systolic function is normal. The estimated ejection fraction is 55 %. Apical false tendon noted. Trivial mitral valve insufficiency. Mild tricuspid valve insufficiency. Right ventricular systolic pressure estimated to be 29 mmHg. Transmitral doppler flow suggestive of impaired relaxation of left ventricle Ordering Physician: Dorcas Hatfield Referring Physician: Biju Sifuentes Performed By: Dian Joshi, LORA, RVT
[2019-12-16] MEDS: Pantoprazole Sodium 20 MG Tablet PO (12:34)
[2019-12-16] MEDS: DULoxetine Hcl 60 MG Capsule PO (12:34)
[2019-12-16] MEDS: Insulin Lispro 100 UNIT/ML INSULN.PEN SC (12:37)
[2019-12-16 12:40] LABS: Bedside Glucose 250 mg/dL (70-110)
--- NOTE | 2019-12-16 14:52 | DS.PCM_ITS ---
Discharge Date and Diagnosis Date of Admission: 12/15/19 Date of Discharge: 12/16/19 - Primary Discharge Diagnosis Acute Problems: Chest pain, likely musculoskeletal pain, ACS ruled out. - Secondary Discharge Diagnosis Chronic Problems: Chronic Problems (Last Updated 05/24/19 @ 16:06 by Geronimo Dash) Diabetes mellitus, type II (Chronic) Obesity (Chronic) Chronic neck pain (Chronic) HLD (hyperlipidemia) (Chronic) Anxiety and depression (Chronic) Hospital Course and Treatment Imaging Results: 12/16/19 05:55 Nuclear Stress Test - Chemical [NM] AM (NON MEDS) 12/16/19 11:37 Echo Complete [ECHO] Urgent Clinical Impression(s) from Imaging Studies Chest X-Ray 12/15/19 11:10 IMPRESSION: Normal x-ray examination of the chest. Electronically Signed: Dylan Rea, at 11:25 EDT , Service support , Operations: None Procedures: 2-D Echocardiogram, EKG, Stress test Summary of Care Provided: Patient seen and examined on the day of discharge and appeared to be stable to be discharged home. He denied any more chest heaviness or chest pain. His vital signs are stable. The patient is a 49 year old M presented to the emergency room because of chest heaviness/pain and he was admitted for evaluation. His initial EKG revealed no acute segment changes. Troponin was negative x3. Chest x-ray showed no acute findings. His routine blood work was unremarkable. Nuclear stress test done and revealed no evidence of stress-induced myocardial ischemia and myocardial perfusion appearing within normal limits, ejection fraction was 43%. Because of this questionable low ejection fraction, 2D echocardiogram done and revealed normal LV size and function, ejection fraction was 55%, RVSP of 29, revealed mitral insufficiency, mild tricuspid insufficiency. ACS ruled out. Patient discharged home in a stable condition, discharged on his previous home medications without any changes in 1 to 2 weeks. - Physical Exam Vitals/I&O's: Vital Signs Temp Pulse Resp BP Pulse Ox 98.2 F 87 18 123/79 H 96 12/16/19 11:10 12/16/19 11:10 12/16/19 11:10 12/16/19 11:10 12/16/19 11:10 Oxygen Delivery Method Room Air Weight: 225 lb 8.526 oz Body Mass Index (BMI) 30.6 Finger Stick Blood Glucose 112 Intake and Output for Last 24 Hours 12/14/19 12/15/19 12/16/19 23:59 23:59 23:59 Intake Total 400 / 950 1326.25 / 1326.25 Balance 400 / 950 1326.25 / 1326.25 General: Alert, Oriented x3, Cooperative, No apparent distress HEENT: Atraumatic, PERRLA, EOMI, Normocephalic Oral: Moist Mucosa, No Gingival or Mucosal Lesions/ Ulcerations Neck: Supple, No JVD, Negative Carotid Bruits, Trachea Midline, Thyroid Normal Size and Texture Lungs: Clear to auscultation, Normal air movement, No rhonchi, No wheeze, No rales Cardiovascular: Regular rate, Regular Rhythm, Normal S1, Normal S2, PMI Normal Abdomen: Bowel Sounds Present, Soft, Non Tender, Non-Distended, No Hepato- splenomegaly Extremities: No clubbing, No cyanosis, No edema Skin: No rashes, No breakdown Lymphatic: No Cervical, Supraclavicular, or Inguinal Adenopathy Neurological: Cranial nerves II-XII grossly intact, Neuro grossly intact Psych/Mental Status: Normal Affect, Appropriate Laboratory Results 12/15/19 16:36: POC Glucose 223 H 12/15/19 16:55: Troponin I < 0.015 12/15/19 22:33: POC Glucose 218 H 12/16/19 05:25: POC Glucose 214 H 12/16/19 12:35: POC Glucose 250 H Current Medications Acetaminophen (Tylenol) 650 mg PO Q6H PRN PRN PRN Reason: Pain Score 1-10/Temp > 100.7 F Aspirin (Ecotrin) 81 mg PO DAILY@0800 [facility] Last Admin: 12/16/19 05:21 Dose: 81 mg Documented by: Atorvastatin Calcium (Lipitor) 20 mg PO QHS [facility] Last Admin: 12/15/19 22:34 Dose: 20 mg Documented by: Duloxetine HCl (Cymbalta) 60 mg PO DAILY [facility] Last Admin: 12/16/19 12:34 Dose: 60 mg Documented by: Sodium Chloride () 500 mls @ 15 mls/hr IV PRN PRN PRN Reason: Blood Transfusion Sodium Chloride () 250 mls @ 15 mls/hr IV .[id number] PRN PRN Reason: Saline Flush Sodium Chloride () 250 mls @ 15 mls/hr IV .[id number] PRN PRN Reason: Additional IVPB Infusion Insulin Human Lispro (Humalog Kwikpen (Bkc)) 0 unit SC ACHS [facility]; Protocol Last Admin: 12/16/19 12:37 Dose: 3 units Documented by: Nitroglycerin (Nitrostat) 0.4 mg SUBLINGUAL Q5M PRN PRN Reason: CARDIAC/CHEST PAIN Ondansetron HCl (Zofran) 4 mg IV Q8H PRN PRN PRN Reason: NAUSEA/VOMITING Pantoprazole Sodium (Protonix) 20 mg PO DAILY [facility] Last Admin: 12/16/19 12:34 Dose: 20 mg Documented by: Sodium Chloride () 10 - 40 ml IV UD PRN PRN Reason: SALINE FLUSH Last Admin: 12/15/19 13:52 Dose: 10 ml Documented by: Discharge Activity: Return to Normal Activity Weight Bearing Status: Full weight bearing Call your doctor if you observe: Fever of 101 or Higher, Shortness of breath, Dizziness, Fainting spells, Chest pain, Increased palpitations (irregular heartbeat), Uncontrolled pain Home Medications: Medications to take at Discharge Duloxetine Hcl [Cymbalta] 60 mg PO DAILY 10/30/15 metFORMIN (XR) [Glucophage Xr] 500 mg PO BID 08/18/18 Naproxen [Naprosyn] 500 mg PO BID PRN PRN #10 tab 12/06/19 Atorvastatin Calcium [Lipitor] 20 mg PO QHS 12/15/19 Omeprazole 20 mg PO DAILY 12/15/19 Primary Care Physician: Biju Sifuentes MD [Primary Care Provider] - Please follow up with your Primary Care Physician in: 1-2 WEEKS. Disposition: Home Minutes spent on discharge:: 27 Patient Condition:: Stable Medical Necessity - Tobacco Use Smoking Status: Never smoker Meaningful Use Info Meaningful Use Diagnoses (Choose all that apply): None applicable OBSV E&M: 32978 Observation care discharge
== END 2019-12-16 10:54 | disposition home or self-care (01) ==
LOC: ED 11:27 → PCU 12:45
PROVIDERS: Admitting Provider Hospitalist; Emergency Provider Emergency Medicine; PCP Family Medicine; Visit Provider Hospitalist
DX: R07.89 Other chest pain (principal); E11.40 Type 2 diabetes mellitus with diabetic neuropathy, unspecified; E78.5 Hyperlipidemia, unspecified; Z79.899 Other long term (current) drug therapy; G89.29 Other chronic pain; F41.9 Anxiety disorder, unspecified; F32.9 Major depressive disorder, single episode, unspecified; Z79.84 Long term (current) use of oral hypoglycemic drugs; E66.9 Obesity, unspecified; K76.9 Liver disease, unspecified; Z68.31 Body mass index [BMI] 31.0-31.9, adult; I08.1 Rheumatic disorders of both mitral and tricuspid valves
CPT/HCPCS: 36415; 71045; 78452; 80048; 82962; 84484; 85025; 93005; 93017; 93306; 96360; 96361; 99218; 99285; A9500; J7030; Q9957; A4216; G0378; J2785

== ENCOUNTER 2021-06-12 08:26 | Emergency (ER) | payer BC, SELFPAY ==
[2021-06-12 08:27] VITALS: BP 126/90; PULSE 96; RESP 16; TEMP 36.4; O2SAT 97; BMI 28.7
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
[2021-06-12] MEDS: Ibuprofen 600 MG Tablet PO (08:51)
[2021-06-12] MEDS: cycloBENZAPRine HCl 10 MG Tablet PO (08:52)
--- NOTE | 2021-06-12 08:55 | RAD_ITS ---
STUDY: X-RAY - LEFT KNEE REASON FOR EXAM: Male, 51 years old. Injury/Pain -- with sunrise view TECHNIQUE: 4 view(s) of the knee. COMPARISON: None. FINDINGS: Normal visualized distal femur. Normal visualized proximal tibia and fibula. Normal proximal tibiofibular articulation. Normal medial femorotibial compartment. Normal lateral femorotibial compartment. Normal patellofemoral articulation. The soft tissue structures are unremarkable. RAD/Knee 4 or More Views IMPRESSION: Normal x-ray examination of the knee. Electronically Signed: Dylan Rea MD at 9:13 EST ,
--- NOTE | 2021-06-12 08:55 | RAD_ITS ---
STUDY: X-RAY - RIGHT KNEE REASON FOR EXAM: Male, 51 years old. Injury/Pain -- with sunrise view TECHNIQUE: 4 view(s) of the knee. COMPARISON: None. FINDINGS: Normal visualized distal femur. Normal visualized proximal tibia and fibula. Normal proximal tibiofibular articulation. Normal medial femorotibial compartment. Normal lateral femorotibial compartment. Normal patellofemoral articulation. The soft tissue structures are unremarkable. RAD/Knee 4 or More Views IMPRESSION: Normal x-ray examination of the knee. Electronically Signed: Dylan Rea MD at 9:14 EST ,
== END 2021-06-12 09:41 | disposition home or self-care (01) ==
PROVIDERS: Emergency Provider Emergency Medicine; PCP Family Medicine; Visit Provider Emergency Medicine
DX: S16.1XXA Strain of muscle, fascia and tendon at neck level, initial encounter (principal); E11.9 Type 2 diabetes mellitus without complications; I10 Essential (primary) hypertension; E78.5 Hyperlipidemia, unspecified; S80.01XA Contusion of right knee, initial encounter; S80.02XA Contusion of left knee, initial encounter; V43.52XA Car driver injured in collision with other type car in traffic accident, initial encounter; F32.A Depression, unspecified; F41.9 Anxiety disorder, unspecified; G89.29 Other chronic pain; K21.9 Gastro-esophageal reflux disease without esophagitis; E66.9 Obesity, unspecified; Z79.84 Long term (current) use of oral hypoglycemic drugs
CPT/HCPCS: 73564; 99281; 99283

== ENCOUNTER 2022-05-22 17:10 | Emergency (ER) | payer BC, SELFPAY ==
[2022-05-22 17:11] VITALS: BP 147/91; PULSE 96; RESP 17; TEMP 36.7; O2SAT 97; BMI 29.8
--- NOTE | 2022-05-22 18:01 | CT_ITS ---
INDICATION: Left lower quadrant pain. EXAMINATION: CT ABDOMEN AND PELVIS WITH CONTRAST - CT Abdomen And Pelvis W/ Contrast Injection TECHNIQUE: Helically acquired images were obtained of the abdomen and pelvis following IV contrast. A radiation dose optimization technique was used for this scan. IV Contrast dosage and agent: 100 mL of Isovue 370 Oral contrast: None. COMPARISON: None. FINDINGS: LOWER CHEST: Lung bases are clear. No cardiomegaly or pericardial effusion. LIVER: Homogeneous. No focal mass. GALLBLADDER AND BILIARY TREE: Nonvisualization of the gallbladder suggesting prior cholecystectomy. No intra- or extrahepatic biliary ductal dilation. PANCREAS: No focal cystic or solid mass. SPLEEN: Mild splenomegaly without mass. ADRENAL GLANDS: No nodules. KIDNEYS AND URETERS: Kidneys are of normal size and cortical thickness. Normal contrast enhancement. There are scattered small cortical cysts bilaterally no enhancing mass or renal calculi. No hydronephrosis. Normal visualized ureters. PERITONEUM: No ascites or free air. No other fluid collection. BOWEL: Normal stomach. There are fluid-filled loops of small bowel throughout the abdomen without marked wall thickening or inflammatory change. Colonic diverticulosis without acute inflammatory change. Normal. LYMPH NODES: Nonspecific subcentimeter lymph nodes in the cecal mesocolon. Nonspecific subcentimeter left periaortic lymphadenopathy. VESSELS: Normal abdominal aorta. Normal IVC. URINARY BLADDER: Unremarkable. REPRODUCTIVE ORGANS: Normal prostate. ABDOMINAL WALL: Small umbilical hernia of omental fat. Findings suggestive of left inguinal herniorrhaphy. BONES: No lytic or blastic abnormality. CT/Abdomen/Pelvis W IV Cont ONLY IMPRESSION: 1. Mildly distended small bowel loops. Question enteritis. 2. Colonic diverticulosis without acute inflammatory change. 3. Mild splenomegaly. 4. Bilateral renal cysts. 5. Left inguinal herniorrhaphy. Electronically Signed: Pedro Henning DO at 19:24 EST Reading Location ID and State: [address] [place] [address] Tel [phone], Service support ,
--- NOTE | 2022-05-22 18:04 | EDS_ITS ---
HPI HPI - GI History of Present Illness Chief Complaint: Diarrhea Narrative Narrative: 52-year-old male past medical history of diabetes, on metformin, presents with 3 days worth of diarrhea. He states his stool is loose without any blood in it. He developed left lower quadrant to suprapubic abdominal pain. States he had colonoscopy in the past but never told that he had diverticuli. He denies fevers or chills but states he is nauseated but has not vomited. No exacerbating or alleviating factors. He has crampy abdominal pain that sometimes becomes sharp and stabbing on the left. No prior abdominal surgeries. Over the last 24 hours has had multiple episodes of diarrhea, at least every hour or whenever he tries to eat something. [facility] Medical History Anxiety and depression Chest pain Chronic neck pain Diabetes mellitus, type II Essential hypertension Fatty liver GERD (gastroesophageal reflux disease) History of migraine HLD (hyperlipidemia) Liver disease Obesity Home Medications duloxetine 60 mg capsule,delayed release 60 mg PO DAILY DEPRESSION 10/30/15 [His tory Last Taken 08/30/18] atorvastatin 20 mg tablet 20 mg PO QHS 12/15/19 [History Last Taken Unknown] omeprazole 20 mg tablet,delayed release 20 mg PO DAILY 12/15/19 [History Last Taken Unknown] acetaminophen 325 mg tablet 650 mg PO Q6H PRN Pain, Mild 03/20/20 [History Last Taken Unknown] betamethasone dipropionate 0.05 % topical cream applic topical PRN PRN Rash 03/20/20 [History Last Taken Unknown] docusate sodium 100 mg capsule 100 mg PO DAILY PRN Constipation 03/20/20 [History Last Taken Unknown] fluticasone propionate 50 mcg/actuation nasal spray,suspension g intranasal 03/20/20 [History Last Taken Unknown] hydrocortisone acetate 25 mg rectal suppository 25 mg [place] QHS PRN sleep 03/20/20 [History Last Taken Unknown] losartan 50 mg tablet 50 mg PO DAILY #90 tabs 03/20/20 [Rx Last Taken Unknown] meloxicam 15 mg tablet 15 mg PO DAILY 03/20/20 [History Last Taken Unknown] metformin 500 mg tablet,extended release 24 hr 1,000 mg PO BID DM 03/20/20 [History Last Taken Unknown] rreioqxk-esxxre-VN-thonzonm 3.3 mg-3 mg-10 mg-0.5 mg/mL ear drops,susp (Cortisporin-TC) 3 drp otic (ear) 4X/DAY 03/20/20 [History Last Taken Unknown] sitagliptin phosphate 100 mg tablet 100 mg PO DAILY 03/20/20 [History Last Taken Unknown] sumatriptan succinate 100 mg tablet 100 mg PO ONCE PRN Headache 03/20/20 [History Last Taken Unknown] tizanidine 4 mg tablet mg PO 03/20/20 [History Last Taken Unknown] ondansetron 4 mg disintegrating tablet 4 mg PO Q6H PRN nausea and vomiting #20 tabs 05/22/22 [Rx Last Taken Unknown] Allergy/AdvReac Type Severity Reaction Status Date / Time Influenza Virus Vaccines Allergy Intermediate rash Verified 05/22/22 17:10 Family History Mother Hypertension Migraines Father Hypertension Sister Asthma Grandmother Cancer Grandmother Cancer Surgical History History of cholecystectomy History of left inguinal hernia repair (07/2006) History of neck surgery Social History Smoking Status: Never smoker alcohol intake: never substance use type: does not use ROS ROS ED ROS Narrative Constitutional: No fever, no chills. HEENT: No sore throat. No neck pain. No loss of vision. No rhinorrhea. Cardiovascular: No chest pain. No palpitations. No pedal edema. Respiratory: No cough, no shortness of breath. Abdominal: Left lower quadrant to suprapubic abdominal pain. Positive nausea. No vomiting. Multiple episodes of nonbloody diarrhea. Genitourinary: No dysuria. No hematuria. Musculoskeletal: No myalgias. No arthralgias. Neurologic: No headaches. No dizziness. No lightheadedness. Skin: No rash. No change in color. Psychiatric: No depression. No anxiety. EXAM Physical Exam Narrative Exam Narrative: Afebrile. Vital signs noted. HEENT: Normocephalic. Atraumatic. PERRL, EOMI. Neck soft and supple. No point tenderness or step off. Cardiovascular: Regular rate and rhythm. No murmurs, rubs, or gallops appreciated. Respiratory: No tachypnea. Lungs clear to auscultation bilaterally. Gastrointestinal: Abdomen soft, mild tenderness left lower quadrant to suprapubic area with normoactive bowel sounds. No rebound or guarding. Neurological: Awake. Alert. Nonfocal, nonlateralizing. Skin: No rash. Normal color. No pallor. Musculoskeletal: No pedal edema. Full range of motion extremities. Const Vital Signs: 05/22/22 17:11 Temperature 98.0 F Temperature Source Temporal Pulse Rate 96 Respiratory Rate 17 Blood Pressure 147/91 H Blood Pressure Mean 109 Pulse Ox 97 Oxygen Delivery Method Room Air MDM MDM MDM Narrative Medical decision making narrative: In the differential diagnosis is gastroenteritis versus colitis versus diverticulitis. Diverticulitis is less likely because he states he does not have history of diverticulosis. Comprehensive work-up was pursued. He was bolused normal saline 1 L intravenously and given analgesia in the form of morphine 4 mg intravenously and ondansetron 4 mg intravenously for his nausea. CBC, CMP obtained along with urinalysis. I reviewed his laboratory work. CBC shows normal white count of 5.5, hemoglobin normal at 15.6, hematocrit 46.4. Platelet count normal at 152. CMP reviewed and shows mild hypokalemia of 3.4 which was replaced orally with 40 mEq. He has a normal BUN of 12 and a creatinine of 1.1. LFTs are grossly unremarkable with an AST of 30 and an ALT of 59. Urinalysis was reviewed and is negative for infection. I do not feel antibiotics are indicated. CT of the abdomen and pelvis with IV contrast does show diverticulosis but no evidence of diverticulitis. There are slightly dilated small bowel loops with fluid contained within consistent with enteritis. Upon repeat examination, his abdomen remains soft and he is feeling markedly improved. I feel he be discharged safely home with follow-up to his primary care provider. He was written a prescription for Zofran ODT's and a note to be off work today and tomorrow. Stable condition. Return instructions to the emergency department were reviewed. Lab Data Attestation: I reviewed the patient's lab results. Labs: Laboratory Results - last 24 hr 05/22/22 05/22/22 05/22/22 17:30 17:30 18:27 WBC 5.5 RBC 5.20 Hgb 15.6 Hct 46.4 MCV 89.2 MCH 30.0 MCHC 33.6 RDW Std Deviation 46.0 H RDW Coeff of Naina 14.2 Plt Count 152 MPV 10.2 Immature Gran % (Auto) 0.400 Neut % (Auto) 56.3 Lymph % (Auto) 25.2 [place] % (Auto) 15.5 H Eos % (Auto) 2.2 Baso % (Auto) 0.4 Absolute Neuts (auto) 3.1 Absolute Lymphs (auto) 1.38 Nucleated RBC % 0 Sodium 137 Potassium 3.4 L Chloride 105 Carbon Dioxide 27.0 Anion Gap 5 BUN 12 Creatinine 1.11 Estim Creat Clear Calc 86.42 Est GFR (MDRD) Af Amer 90 Est GFR (MDRD) Non-Af 74 BUN/Creatinine Ratio 10.8 Glucose 113 H Calcium 8.2 L Total Bilirubin 0.70 AST 30 ALT 59 Alkaline Phosphatase 66 Total Protein 7.9 Albumin 3.6 Globulin 4.3 H Albumin/Globulin Ratio 0.8 L Urine Color Yellow Urine Clarity Clear Urine pH 6.5 Ur Specific [place] 1.010 Urine Protein 30 H Urine Glucose (UA) Normal Urine Ketones Negative Urine Occult Blood 10 H Urine Nitrite Negative Urine Bilirubin Negative Urine Urobilinogen 1 H Ur Leukocyte Esterase Negative Urine RBC 0 SEEN Urine WBC 0 SEEN Ur Squamous Epith Cells 0 SEEN Urine Bacteria 0 SEEN Urine Mucus 0 SEEN Radiography Diagnostic Testing: Clinical Impression(s) from Imaging Studies Abdomen/Pelvis CT 05/22/22 18:01 IMPRESSION: 1. Mildly distended small bowel loops. Question enteritis. 2. Colonic diverticulosis without acute inflammatory change. 3. Mild splenomegaly. 4. Bilateral renal cysts. 5. Left inguinal herniorrhaphy. Electronically Signed: Pedro Henning DO at 19:24 EST Reading Location ID and State: [address] [place] [address] Tel [phone], Service support , Discharge Plan Triage Chief Complaint: Diarrhea ED Provider: Patricio Hines Dx/Rx/DC Orders Clinical Impression: Diarrhea, Enteritis, Abdominal pain, Nausea, Hypokalemia Instructions: ED Diarrhea, Unknown Cause, ED Gastroenteritis, Noninfectious, ED Hypokalemia, ED Abdominal Pain Unkn Cause Male... Prescriptions: New ondansetron 4 mg tablet,disintegrating 4 mg PO Q6H PRN (Reason: nausea and vomiting) Qty: 20 0RF No Action losartan 50 mg tablet 50 mg PO DAILY Qty: 90 4RF betamethasone dipropionate 0.05 % cream TOPICAL PRN PRN (Reason: Rash) Label Comments: apply to affected area ON FACE AND EARS twice a day fluticasone propionate 50 mcg/actuation spray,suspension INTRANASAL Label Comments: instill 2 sprays into each nostril once daily Rinse mouth after use tizanidine 4 mg tablet PO Label Comments: take 1 tablet by mouth every 8 hours if needed meloxicam 15 mg tablet 15 mg PO DAILY Label Comments: take 1 tablet by mouth once daily with food sitagliptin phosphate 100 mg tablet 100 mg PO DAILY acetaminophen 325 mg tablet 650 mg PO Q6H PRN (Reason: Pain, Mild) sumatriptan succinate 100 mg tablet 100 mg PO ONCE PRN (Reason: Headache) Cortisporin-TC 3.3-3-10-0.5 mg/mL drops,suspension 3 drp OTIC 4X/DAY docusate sodium 100 mg capsule 100 mg PO DAILY PRN (Reason: Constipation) hydrocortisone acetate 25 mg suppository 25 mg [place] QHS PRN (Reason: sleep) duloxetine 60 MG capsule 60 mg PO DAILY metformin 500 mg tablet extended release 24 hr 1,000 mg PO BID atorvastatin 20 MG tablet 20 mg PO QHS omeprazole 20 MG tablet,delayed release (DR/EC) 20 mg PO DAILY Stand Alone Forms: ED Work / School Excuse Primary Care Provider: Biju Sifuentes Referrals: Biju Sifuentes MD [Primary Care Provider] - 3-5 Days if not improving Disposition Disposition: Home, Self Care
[2022-05-22] MEDS: 0.9% Normal Saline 1,000 ML 1000 ML IV (18:12)
[2022-05-22] MEDS: Ondansetron 4 MG/2 ML Vial IV (18:13)
[2022-05-22] MEDS: Morphine 4 MG/ML Syringe IV (18:13)
[2022-05-22 18:28] LABS: Absolute Lymphocyte Count 1.38 X10^3/uL (0.83-4.51); Absolute Neutrophil Count 3.1 X10^3/uL (2.0-7.7); Basophil# 0.02 X10^3/uL; Basophil% 0.4 % (0-1); Eosinophil# 0.12 X10^3/uL; Eosinophils% 2.2 % (0-5); Hematocrit 46.4 % (40-54); Hemoglobin 15.6 g/dL (13.0-16.5); Lymphocyte # 1.38 X10^3/ul (0.83-4.51); Lymphocyte % 25.2 % (19-41); Mean Corp Hgb Conc 33.6 g/dL (32-36); Mean Corpuscular Volume 89.2 fL (80-94); Mean Platelet Vol. 10.2 fl (6.2-12.0); Monocyte# 0.85 X10^3/uL; Monocyte% 15.5 % (0-10); NRBC Flagged by Analyzer 0 % (0-5); Neutrophil # 3.08 X10^3/uL (2.7-7.7); Neutrophil % 56.3 % (47-70); Platelet Count 152 K/mm3 (150-450); RBC Distribution Width CV 14.2 % (11.6-14.6); White Blood Count 5.5 K/mm3 (4.4-11.0)
[2022-05-22 18:33] LABS: Bacteria 0 SEEN /hpf (None Seen); Mucous, Urine 0 SEEN /hpf (<or=2+); Red Blood Cells-Urine 0 SEEN /hpf (0-5); Squamous Epithelial Cells - UA 0 SEEN /hpf (0-5); White Blood Cells 0 SEEN /hpf (0-5)
[2022-05-22 18:39] LABS: Color, Urine Yellow (Yellow); Glucose, Dipstick Normal (Normal); Ketone-Dipstick Negative (Negative); Leukocyte Esterase-Dipstick Negative /ul (Negative); Nitrite-Dipstick Negative (Negative); Occult Blood-Urine 10 /ul (Negative); Protein-Dipstick 30 mg/dl (Negative); Urine Bilirubin Dipstick Negative (Negative); Urine Clarity Clear (Clear); Urine Urobilinogen 1 mg/dl (Normal); Urine pH 6.5 (5.0 - 8.0)
[2022-05-22 18:46] LABS: ALB/GLOB Ratio 0.8 RATIO (0.9-2.4); AST(SGOT) 30 U/L (15-37); Alanine Aminotransfer ALT/SGPT 59 U/L (16-61); Albumin, Serum 3.6 g/dL (3.2-5.0); Alkaline Phosphatase 66 U/L (45-117); Anion Gap 5 (5-15); BUN 12 mg/dL (7-18); BUN/Creat Ratio 10.8 RATIO (10-20); Calcium,Total 8.2 mg/dL (8.5-10.1); Chloride 105 mmol/L (98-107); Creatinine, Serum 1.11 mg/dL (0.70-1.30); EST Glomerular Filtration Rate 74 mL/min (>60); Est Glom Filt Rate - Afr Amer 90 mL/min (>60); Estimated Creatinine Clearance 86.42 ml/min; Globulin 4.3 g/dL (2.2-4.2); Glucose 113 mg/dL (74-106); Potassium 3.4 mmol/L (3.5-5.1); Protein, Total 7.9 g/dL (6.4-8.2); Sodium Level 137 mmol/L (136-145)
[2022-05-22 19:44] VITALS: BP 130/74
[2022-05-22] MEDS: Potassium Chloride Oral Tablet 20 MEQ 40 MEQ PO (19:45)
== END 2022-05-22 19:47 | disposition home or self-care (01) ==
PROVIDERS: Emergency Provider Emergency Medicine; PCP Family Medicine; Visit Provider Emergency Medicine
DX: K52.9 Noninfective gastroenteritis and colitis, unspecified (principal); E11.9 Type 2 diabetes mellitus without complications; E87.6 Hypokalemia; I10 Essential (primary) hypertension; E78.5 Hyperlipidemia, unspecified; Z79.84 Long term (current) use of oral hypoglycemic drugs; K57.30 Diverticulosis of large intestine without perforation or abscess without bleeding; R11.0 Nausea
CPT/HCPCS: 74177; 80053; 81001; 85025; 96361; 96374; 96375; 99282; J7030; Q9967; A4216; J2405

== ENCOUNTER 2022-12-17 21:40 | Emergency (ER) | payer BC, SELFPAY ==
[2022-12-17 21:41] VITALS: BP 143/87; PULSE 107; RESP 18; TEMP 35.8; O2SAT 99; BMI 29.7
--- NOTE | 2022-12-18 00:26 | ED.VIS.LOWEX ---
HPI History of Present Illness Chief Complaint: Lower Extremity Injury Detail of Chief Complaint: Swelling left great toe Informant: patient Onset/Context/Timing Onset: Days Context: Sudden Onset Timing: Continuous Quality of Pain: Throbbing Location: Swelling dorsal surface of the left great toe Current Severity: Mild Maximum Severity: Moderate Worsened by: Pressure sensation with walking Relieved by: Nothing Associated Symptoms Associated Symptoms: Negative for Parasthesia, Weakness or Loss of Funtion Narrative Narrative: Patient is a 52-year-old male with type 2 diabetes, hyperlipidemia, essential hypertension who is seen at urgent care and treated with prednisone for presumed spider bite. Patient states he had no improvement. He denies fever, chills night sweats. He denies elevated blood sugar. He has no other complaints. Prior similar symptoms: No Recent Illness/Hospitalization: Yes (For presumed spider bite) [facility] Medical History Anxiety and depression Chest pain Chronic neck pain Diabetes mellitus, type II Essential hypertension Fatty liver GERD (gastroesophageal reflux disease) History of migraine HLD (hyperlipidemia) Liver disease Obesity Home Medications duloxetine 60 mg capsule,delayed release 60 mg PO DAILY DEPRESSION 10/30/15 [History Last Taken 08/30/18] atorvastatin 20 mg tablet 20 mg PO QHS 12/15/19 [History Last Taken Unknown] omeprazole 20 mg tablet,delayed release 20 mg PO DAILY 12/15/19 [History Last Taken Unknown] acetaminophen 325 mg tablet 650 mg PO Q6H PRN Pain, Mild 03/20/20 [History Last Taken Unknown] betamethasone dipropionate 0.05 % topical cream applic topical PRN PRN Rash 03/20/20 [History Last Taken Unknown] docusate sodium 100 mg capsule 100 mg PO DAILY PRN Constipation 03/20/20 [History Last Taken Unknown] fluticasone propionate 50 mcg/actuation nasal spray,suspension g intranasal 03/20/20 [History Last Taken Unknown] hydrocortisone acetate 25 mg rectal suppository 25 mg [place] QHS PRN sleep 03/20/20 [History Last Taken Unknown] losartan 50 mg tablet 50 mg PO DAILY #90 tabs 03/20/20 [Rx Last Taken Unknown] meloxicam 15 mg tablet 15 mg PO DAILY 03/20/20 [History Last Taken Unknown] metformin 500 mg tablet,extended release 24 hr 1,000 mg PO BID DM 03/20/20 [History Last Taken Unknown] qoxdgrxw-cwlqea-HH-thonzonm 3.3 mg-3 mg-10 mg-0.5 mg/mL ear drops,susp (Cortisporin-TC) 3 drp otic (ear) 4X/DAY 03/20/20 [History Last Taken Unknown] sitagliptin phosphate 100 mg tablet 100 mg PO DAILY 03/20/20 [History Last Taken Unknown] sumatriptan succinate 100 mg tablet 100 mg PO ONCE PRN Headache 03/20/20 [History Last Taken Unknown] tizanidine 4 mg tablet mg PO 03/20/20 [History Last Taken Unknown] ondansetron 4 mg disintegrating tablet 4 mg PO Q6H PRN nausea and vomiting #20 tabs 05/22/22 [Rx Last Taken Unknown] Allergy/AdvReac Type Severity Reaction Status Date / Time Influenza Virus Vaccines Allergy Intermediate rash Verified 12/17/22 21:43 Family History Mother Hypertension Migraines Father Hypertension Sister Asthma Grandmother Cancer Grandmother Cancer Surgical History History of cholecystectomy History of left inguinal hernia repair (07/2006) History of neck surgery Social History Smoking Status: Never smoker alcohol intake: never substance use type: does not use ROS ROS ED Constitutional Constitutional ED: Denies chills, fever(s), subjective or sweats Eyes Eyes: Denies change in vision Gastrointestinal Gastrointestinal: Denies nausea or vomiting Integumentary Denies abscess, Abrasions or rash Neurologic Neurologic: Denies paresthesias or weakness Hematologic/Lymphatic Hematologic/Lymphatic: Denies easy bleeding or easy bruising EXAM Physical Exam Const Vital Signs: 12/17/22 21:41 Temperature 96.4 F L Temperature Source Temporal Pulse Rate 107 H Respiratory Rate 18 Blood Pressure 143/87 H Blood Pressure Mean 105 Pulse Ox 99 Oxygen Delivery Method Room Air Positive well nourished and well developed General Appearance ED: well developed and NAD HEENT Reports moist mucous membranes normocephalic and atraumatic Eyes PERRL Neck full ROM Resp normal respiratory effort Cardio regular rate and regular rhythm Extremity Negative for normal to inspection Extremity Narrative: Patient has a paronychia. There is no erythema, warmth, induration or lymphangitis. There is fluctuance noted. Neuro oriented x3, CN's II-XII intact bilaterally, moves all extremities and no sensory deficits noted Sensorium / Orientation: alert Psych mental status grossly normal Skin no wounds Lesions: no lesions Rashes: no rashes MDM MDM MDM Narrative Medical decision making narrative: Patient has a paronychia. Using an 18-gauge needle the paronychia was unroofed. There was significant flow with purulent material approximately 2 cc. Patient reports improvement after the paronychia was lanced. Patient be discharged home with appropriate home-going instructions Procedures Other Procedures Procedure(s): Drainage of paronychia Discharge Plan Triage Chief Complaint: Lower Extremity Injury ED Provider: Luis M Inman Dx/Rx/DC Orders Clinical Impression: Paronychia of toenail of left foot, Fatty liver, Essential hypertension, History of type 2 diabetes mellitus Instructions: ED Paronychia of the Finger or Toe Prescriptions: No Action losartan 50 mg tablet 50 mg PO DAILY Qty: 90 4RF betamethasone dipropionate 0.05 % cream TOPICAL PRN PRN (Reason: Rash) Patient Comments: apply to affected area ON FACE AND EARS twice a day fluticasone propionate 50 mcg/actuation spray,suspension INTRANASAL Patient Comments: instill 2 sprays into each nostril once daily Rinse mouth after use tizanidine 4 mg tablet PO Patient Comments: take 1 tablet by mouth every 8 hours if needed meloxicam 15 mg tablet 15 mg PO DAILY Patient Comments: take 1 tablet by mouth once daily with food sitagliptin phosphate 100 mg tablet 100 mg PO DAILY acetaminophen 325 mg tablet 650 mg PO Q6H PRN (Reason: Pain, Mild) sumatriptan succinate 100 mg tablet 100 mg PO ONCE PRN (Reason: Headache) Cortisporin-TC 3.3-3-10-0.5 mg/mL drops,suspension 3 drp OTIC 4X/DAY docusate sodium 100 mg capsule 100 mg PO DAILY PRN (Reason: Constipation) hydrocortisone acetate 25 mg suppository 25 mg [place] QHS PRN (Reason: sleep) duloxetine 60 MG capsule 60 mg PO DAILY metformin 500 mg tablet extended release 24 hr 1,000 mg PO BID atorvastatin 20 MG tablet 20 mg PO QHS omeprazole 20 MG tablet,delayed release (DR/EC) 20 mg PO DAILY ondansetron 4 mg tablet,disintegrating 4 mg PO Q6H PRN (Reason: nausea and vomiting) Qty: 20 0RF Primary Care Provider: Biju Sifuentes Referrals: Biju Sifuentes MD [Primary Care Provider] - As Needed Activity Restrictions/Additional Instructions: Soak your toe in warm soapy water 4-6 times a day for the next 2 to 3 days. Disposition Disposition: Home, Self Care
== END 2022-12-18 00:51 | disposition home or self-care (01) ==
LOC: ED 12-18 00:30
PROVIDERS: Emergency Provider Emergency Medicine; PCP Family Medicine; Visit Provider Emergency Medicine
DX: L03.032 Cellulitis of left toe (principal); E11.9 Type 2 diabetes mellitus without complications; I10 Essential (primary) hypertension; E78.5 Hyperlipidemia, unspecified; K76.0 Fatty (change of) liver, not elsewhere classified; Z79.84 Long term (current) use of oral hypoglycemic drugs; Z79.899 Other long term (current) drug therapy
CPT/HCPCS: 10060; 99282